=== PATIENT | female | born 1985 | race Caucasian/White ===

== ENCOUNTER 2017-07-01 08:59 | Emergency (ER) | payer SELFPAY ==
[2017-07-01] MEDS ORDERED: ACETAMINOPHEN 325 MG TABLET PO ONE (09:46)
[2017-07-01] MEDS ORDERED: NORMAL SALINE 1000 ML 1,000 ML IV ONE (09:46)
[2017-07-01 10:52] LABS: ABSOLUTE BASOPHILS # (AUTO) 0.1 10^3/uL (0.0-0.2); ABSOLUTE EOSINOPHILS # (AUTO) 0.1 10^3/uL (0.0-0.6); ABSOLUTE LYMPHOCYTES (AUTO) 2.4 10^3/uL (0.5-4.7); ABSOLUTE MONOCYTES (AUTO) 1.2 10^3/uL (0.1-1.4); ABSOLUTE NEUT (AUTO) 8.9 10^3/uL (1.7-8.2); BASOPHILS % (AUTO) 0.5 % (0-2); EOSINOPHILS % (AUTO) 0.5 % (0-6); HEMATOCRIT 44.3 % (36.0-47.0); HGB HCT DIFFERENCE 0.7; LYMPHOCYTES % (AUTO) 18.8 % (13-45); MEAN CORPUSCULAR HEMOGLOBIN 29.1 pg (27.0-33.4); MEAN CORPUSCULAR HGB CONC 33.8 g/dL (32.0-36.0); MEAN CORPUSCULAR VOLUME 86 fl (80-97); MONOCYTES % (AUTO) 9.7 % (3-13); RED BLOOD COUNT 5.15 10^6/uL (3.72-5.28); RED CELL DISTRIBUTION WIDTH 14.7 % (11.5-14.0); SEGMENTED NEUTROPHILS % (AUTO) 70.5 % (42-78); VENOUS BLOOD BASE EXCESS 2.2 mmol/L; VENOUS BLOOD HCO3 27.8 mmol/L (20-32); VENOUS BLOOD PCO2 46.7 mmHg (35-63); VENOUS BLOOD PH 7.39 (7.30-7.42); WHITE BLOOD COUNT 12.7 10^3/uL (4.0-10.5)
[2017-07-01 11:01] LABS: PROTHROMBIN TIME 14.4 SEC (11.4-15.4)
[2017-07-01 11:05] LABS: ALANINE AMINOTRANSFERASE 28 U/L (9-52); ALKALINE PHOSPHATASE 71 U/L (38-126); ANION GAP 12 (5-19); ASPARTATE AMINO TRANSFERASE 25 U/L (14-36); BILIRUBIN,DIRECT 0.6 mg/dL (0.0-0.4); BILIRUBIN,TOTAL 0.8 mg/dL (0.2-1.3); BLOOD UREA NITROGEN 9 mg/dL (7-20); CALCIUM 9.1 mg/dL (8.4-10.2); CARBON DIOXIDE 25 mmol/L (22-30); CHLORIDE 99 mmol/L (98-107); CREATININE RESULT 0.72 mg/dL (0.52-1.25); GLUCOSE 100 mg/dL (75-110); POTASSIUM 4.4 mmol/L (3.6-5.0); SODIUM 136.2 mmol/L (137-145); TOTAL PROTEIN 7.8 g/dL (6.3-8.2)
[2017-07-01 11:08] LABS: APPEARANCE,URINE SLIGHTLY-CLOUDY; BILIRUBIN,URINE NEGATIVE (NEGATIVE); GLUCOSE, URINE NEGATIVE (NEGATIVE); KETONES,URINE NEGATIVE (NEGATIVE); LEUKOCYTE ESTERASE,URINE NEGATIVE (NEGATIVE); NITRITE,URINE NEGATIVE (NEGATIVE); PROTEIN,URINE 30 mg/dL (NEGATIVE); URINE SPECIFIC GRAVITY 1.013
--- NOTE | 2017-07-01 11:32 | XCELERA REPORT ---
[address] [address] Lower Extremity Venous Evaluation Name: DAVID BARRETT Age: 32 yrs Gender: Female : 1985 Patient Status: Emergency Patient Location: ER Study Date: 07/01/2017 10:45 AM Procedure: Color flow and duplex imaging of the veins of the right lower extremity as well as the left Common Femoral vein. Reason For Study: rle redness, tenderness and swelling, h/o PE Ordering Physician: JESSICA GANNON PA-C Performed By: Ingrid Villanueva Right Sided Venous Evaluation Normal vessel filling wall to wall, compression and augmentation as well as Colour flow down to the infrageniculate veins. Left Sided Venous Evaluation The left common femoral vein is fully compressible. Spontaneous and phasic flow is present in the left common femoral vein. Interpretation Summary No duplex evidence of DVT or obstruction in the right lower extremity nor in the left Common Femoral vein. : JESSICA GANNON PA-C > Paul Dean
--- NOTE | 2017-07-01 12:05 | RADIOLOGY REPORT (SQ) ---
EXAM DESCRIPTION: CTA CHEST COMPLETED DATE/TIME: 07/01/2017 11:41 am REASON FOR STUDY: SOB, chest discomfort, h/o PE COMPARISON: 04/22/2016 TECHNIQUE: CT scan of the chest performed using helical scanning technique with dynamic intravenous contrast injection. Images reviewed with lung, soft tissue and bone windows. Reconstructed coronal and sagittal MPR images reviewed. Additional 3 dimensional post-processing performed to develop Maximal Intensity Projection images (VT P). All images stored on PACS. All CT scanners at this facility use dose modulation, iterative reconstruction, and/or weight based d osing when appropriate to reduce radiation dose to as low as reasonably achievable (ALARA). [facility]: Dose Right [facility]: CareDose [facility]: Dose Right [facility]: Teradose 4D [facility]: Canpages CONTRAST TYPE AND DOSE: contrast/concentration: Isovue 370.00 mg/ml; Total Contrast Delivered: 86.0 ml; Total Saline Delivered: 99.8 ml 86 mL Isovue 370 intravenously RENAL FUNCTION: Creatinine 0.72 LMP 06/13/2017. RADIATION DOSE: Up-to-date CT equipment and radiation dose reduction techniques were employed. CTDIv ol: 41.3 - 41.7 mGy. DLP: 1659 mGy-cm. . LIMITATIONS: None. FINDINGS: LUNGS AND PLEURA: Patchy atelectatic markings RLL similar to prior study. AORTA AND GREAT VESSELS: Limited opacification a nondilated aorta. HEART: No pericardial effusion. PULMONARY ARTERIES: No emboli visualized in the main pulmonary arteries or the segmental branches. HILAR AND MEDIASTINAL STRUCTURES: No identified masses or abnormal nodes. HARDWARE: None in the chest. UPPER ABDOMEN: No significant findings. Limited exam. THYROID AND OTHER SOFT TISSUES: No masses. No adenopathy. BONES: No acute or significant finding. 3D MIPS: Confirm above findings. OTHER: No other significant finding. IMPRESSION: No CT evidence for central pulmonary embolus. Patchy linear atelectatic markings again noted right lung base. TECHNICAL DOCUMENTATION: JOB ID: [id number] Quality ID # [id number]: Final reports with documentation of one or more dose reduction techniques (e.g., Au tomated exposure control, adjustment of the mA and/or kV according to patient size, use of iterative reconstruction technique) 2010 [employer]- All Rights Reserved
--- NOTE | 2017-07-01 12:09 | EKG REPORT ---
SEVERITY:- NORMAL ECG - SINUS RHYTHM : Confirmed by: Shanda Guo 01-Jul-2017 12:08:35
[2017-07-01] MEDS ORDERED: CLINDAMYCIN 600 MG/D5W RTU 50 ML IV ONE (12:22)
--- NOTE | 2017-07-01 12:22 | ER Document Report ---
Doctor's Note Notes: 07/01/17 12:22 Evaluated the patient independently patient with right lower extremity cellulitis around the right posterior fossa of the knee. Will start on clindamycin follow-up with primary care.
[2017-07-01] MEDS ORDERED: NYSTATIN OINTMENT 15 GM TUBE TP ONE (12:23)
--- NOTE | 2017-07-01 13:02 | ER Document Report ---
ED General - General Chief Complaint: Flu Symptoms Stated Complaint: FLU LIKE SYMPTOMS/LEG SWELLING Time Seen by Provider: 07/01/17 09:32 Notes: Patient is a 32-year-old female presents emergency department with flulike symptoms. Admits to feeling clammy with right leg pain since Friday with redness on her leg starting on Friday. Patient states that she does not follow with primary care states she has been told she has high blood pressure in the past. Past medical history significant for PE 2 in the past. Patient states that she does not take control no recent travel or surgery but admits to pack-a-day smoker. At this time she admits to pain on the right anterior side of the thigh but otherwise denies any chest pain, shortness of breath. TRAVEL OUTSIDE OF THE [place] IN LAST 30 DAYS: No - Related Data Allergies/Adverse Reactions: No Known Allergies Allergy (Verified 07/01/17 09:03) Past Medical History - Social History Smoking Status: Current Every Day Smoker Chew tobacco use (# tins/day): No Frequency of alcohol use: None Drug Abuse: Marijuana Family History: Reviewed & Not Pertinent Patient has suicidal ideation: No - Past Medical History Cardiac Medical History: Reports: Hx Hypertension, Hx Pulmonary Embolism Pulmonary Medical History: Reports: Hx Asthma, Hx Bronchitis, Hx Pneumonia Renal/ Medical History: Denies: Hx Peritoneal Dialysis Past Surgical History: Reports: Hx Cholecystectomy, Hx Tonsillectomy - Immunizations Hx Diphtheria, Pertussis, Tetanus Vaccination: No Review of Systems - Review of Systems Constitutional: See HPI Cardiovascular: No symptoms reported Respiratory: No symptoms reported Gastrointestinal: No symptoms reported Skin: See HPI -: Yes All other systems reviewed and negative Physical Exam - Vital signs Vitals: Temp Pulse BP Pulse Ox 99.7 F 102 H 156/85 H 93 07/01/17 09:06 07/01/17 09:06 07/01/17 09:06 07/01/17 09:06 - Notes Notes: PHYSICAL EXAM GENERAL: Alert, interacts well. HEAD: Normocephalic, atraumatic. EYES: Pupils equal, round, and reactive to light. Extraocular movements intact. ENT: Oral mucosa moist, tongue midline. NECK: Full range of motion. Supple. Trachea midline. LUNGS: Clear to auscultation bilaterally, no wheezes, rales, or rhonchi. No respiratory distress. HEART: Regular rate and rhythm. No murmurs, gallops, or rubs. ABDOMEN: Soft, nondistended, nontender. No guarding, rebound, or rigidity.. Bowel sounds present in all 4 quadrants. EXTREMITIES: Moves all 4 extremities spontaneously. No edema, radial and dorsalis pedis pulses 2/4 bilaterally. No cyanosis. NEUROLOGICAL: Alert and oriented x4. Normal speech. PSYCH: Normal affect, normal mood. SKIN: Warm, dry, normal turgor. Edematous and indurated area noted on the medial aspect of the right thigh extending behind the right knee. Mild tenderness to palpation without any evidence of fluctuation or concern for abscess. Patient able to ambulate without any difficulty full range of motion. Course - Re-evaluation Re-evalutation: 07/01/17 18:49 Patient is a 32-year-old female hemodynamic stable, no acute distress and afebrile. Workup did not reveal any evidence of an acute PE, leukocytosis, anemia, electrolyte abnormalities.patient has received IV antibiotics for cellulitis of the right thigh borders marked with a skin marker and patient educated on antibiotic use, proper hygiene and Strict return precautions as well as scheduled follow-up. Patient agrees agrees with plan and stable for discharge home - Vital Signs Vital signs: Temp Pulse Resp BP Pulse Ox 98.8 F 81 18 126/72 H 98 07/01/17 14:00 07/01/17 14:00 07/01/17 14:00 07/01/17 14:00 07/01/17 14:00 - Laboratory Result Diagrams: 07/01/17 10:32 07/01/17 10:32 Laboratory results interpreted by me: 07/01/17 07/01/17 07/01/17 10:32 10:32 10:32 WBC 12.7 H RDW 14.7 H Absolute Neutrophils 8.9 H Sodium 136.2 L Direct Bilirubin 0.6 H Urine Protein 30 H Urine Urobilinogen 2.0 H Urine Ascorbic Acid 40 H - Diagnostic Test Radiology reviewed: Image reviewed, Reports reviewed Discharge - Discharge Clinical Impression: Cellulitis Qualifiers: Site of cellulitis: extremity Site of cellulitis of extremity: lower extremity Laterality: right Qualified Code(s): L03.115 - Cellulitis of right lower limb Condition: Good Disposition: HOME, SELF-CARE Instructions: Acetaminophen Additional Instructions: Follow up with medicaid Follow up in 3-5 days or a wound check CELLULITIS: You have an infection of your skin and underlying soft tissues called cellulitis. This is due to bacteria, which can enter through any break in the skin, or even through an irritated hair follicle. Untreated, cellulitis will usually worsen. Antibiotics are required. Usually, warm packs or warm soaks, and elevation of the infected area are recommended. You should start getting better within 24 to 36 hours. Most infections respond quickly to the right medication. Follow-up care is important, however, to check for abscess (boil) formation, unsuspected foreign body, or resistant infection. If you develop fever, chills, or if the area of infection is becoming rapidly more swollen or painful, call the doctor at once. ANTIBIOTIC THERAPY: You have been given an antibiotic prescription. It's important that you take all the medication, unless instructed otherwise by your physician. Failure to complete the entire course can result in relapse of your condition. Common side effects of antibiotics include nausea, intestinal cramping, or diarrhea. Women may develop vaginal yeast infections, and babies can get yeast (thrush) in the mouth following the use of antibiotics. Contact your physician if you develop significant side effects from this medication. Allergy to this antibiotic can result in hives, wheezing, faintness, or itching. If symptoms of allergy occur, stop the medication and call the doctor. CLINDAMYCIN: You have been given a prescription for the antibiotic clindamycin. It is often prescribed for infections in the mouth, such as dental infections or abscesses, and for skin infections due to MRSA. It's important that you take all the medication, unless instructed otherwise by your physician. Failure to complete the entire course can result in relapse of your condition. Common side effects of antibiotics include nausea, intestinal cramping, or diarrhea. Women may develop vaginal yeast infections, and babies can get yeast (thrush) in the mouth following the use of antibiotics. Contact your physician if you develop significant side effects from this medication. Allergy to this antibiotic can result in hives, wheezing, faintness, or itching. If symptoms of allergy occur, stop the medication and call the doctor. FOLLOW-UP CARE: If you have been referred to a physician for follow-up care, call the physician s office for an appointment as you were instructed or within the next two days. If you experience worsening or a significant change in your symptoms, notify the physician immediately or return to the Emergency Department at any time for re-evaluation. Prescriptions: Clindamycin HCl 450 mg PO TID #7 capsule Referrals: [facility] [NO LOCAL MD] - Follow up as needed [facility] [Provider Group] - Follow up in 3-5 days
[2017-07-01 14:04] VITALS: BP 126/72
== END 2017-07-01 14:04 | disposition home or self-care (01) ==
LOC: ER 08:59
DX: L03.115 Cellulitis of right lower limb (principal); M79.89 Other specified soft tissue disorders; F17.210 Nicotine dependence, cigarettes, uncomplicated; I10 Essential (primary) hypertension; Z86.711 Personal history of pulmonary embolism; Z90.49 Acquired absence of other specified parts of digestive tract
CPT/HCPCS: 93005; 99284; 96361; 96365; 36415; 87040; 87086; 82962; 85025; 85610; 81025; 80053; 81001; 82803; 83605; 93971 ×2; 71275; 93010; J3490; J7030

== ENCOUNTER 2017-07-14 13:28 | Inpatient (IN) | payer SELFPAY ==
[~2017-07-14 13:28] MED LIST: ONDANSETRON HCL INJ/PF 4 MG/2 ML SDV ONE
--- NOTE | 2017-07-14 14:18 | ER Document Report ---
ED Medical Screen (RME) - General Chief Complaint: Abscess Recheck Stated Complaint: SKIN PROBLEM Time Seen by Provider: 07/14/17 14:06 Mode of Arrival: Wheelchair Information source: Patient Notes: Patient states that she was treated here on 07/01/2017 for cellulitis. Patient states that she is since developed a blister to the right leg over the past 4-5 days and had increased redness. hx: Hypertension, asthma, PE, cholecystectomy, tonsillectomy TRAVEL OUTSIDE OF THE [place] IN LAST 30 DAYS: No - Related Data Allergies/Adverse Reactions: No Known Allergies Allergy (Verified 07/01/17 09:03) Past Medical History - Past Medical History Cardiac Medical History: Reports: Hx Hypertension, Hx Pulmonary Embolism Pulmonary Medical History: Reports: Hx Asthma, Hx Bronchitis, Hx Pneumonia Renal/ Medical History: Denies: Hx Peritoneal Dialysis Past Surgical History: Reports: Hx Cholecystectomy, Hx Tonsillectomy - Immunizations Hx Diphtheria, Pertussis, Tetanus Vaccination: No Physical Exam - Vital signs Vitals: Temp Pulse Resp BP Pulse Ox 97.9 F 115 H 20 154/93 H 89 L 07/14/17 13:46 07/14/17 13:46 07/14/17 13:46 07/14/17 13:46 07/14/17 13:46 - Skin Skin irregularity: Plaque Irregularity with: Swelling, Tenderness, Inflammation Course - Vital Signs Vital signs: Temp Pulse Resp BP Pulse Ox 97.9 F 115 H 20 154/93 H 89 L 07/14/17 13:46 07/14/17 13:46 07/14/17 13:46 07/14/17 13:46 07/14/17 13:46
--- NOTE | 2017-07-14 14:51 | ER Document Report ---
ED General - General Chief Complaint: Abscess Recheck Stated Complaint: SKIN PROBLEM Time Seen by Provider: 07/14/17 14:06 Mode of Arrival: Wheelchair Information source: Patient Notes: 32-year-old female who was diagnosed with cellulitis started on clindamycin on the eighth presents with complaints of worsening redness of her inner thigh. With blistering. Patient has initially symptoms improved over 4 days of now since worsened. She notes intermittent fever TRAVEL OUTSIDE OF THE [place] IN LAST 30 DAYS: No - HPI Onset: Other Onset/Duration: Persistent Quality of pain: Achy Severity: Mild Pain Level: 1 Associated symptoms: None Exacerbated by: Denies Relieved by: Denies Similar symptoms previously: Yes Recently seen / treated by doctor: Yes - Related Data Allergies/Adverse Reactions: No Known Allergies Allergy (Verified 07/01/17 09:03) Past Medical History - General Information source: Patient - Social History Smoking Status: Current Every Day Smoker Cigarette use (# per day): Yes Chew tobacco use (# tins/day): No Smoking Education Provided: No Family History: Reviewed & Not Pertinent - Past Medical History Cardiac Medical History: Reports: Hx Hypertension, Hx Pulmonary Embolism Pulmonary Medical History: Reports: Hx Asthma, Hx Bronchitis, Hx Pneumonia Renal/ Medical History: Denies: Hx Peritoneal Dialysis Past Surgical History: Reports: Hx Cholecystectomy, Hx Tonsillectomy - Immunizations Hx Diphtheria, Pertussis, Tetanus Vaccination: No Review of Systems - Review of Systems Notes: REVIEW OF SYSTEMS: CONSTITUTIONAL : Denies fever, chills, or sweats. Denies recent illness. EENT: Denies eye, ear, throat, or mouth pain or symptoms. Denies nasal or sinus congestion or discharge. Denies throat, tongue, or mouth swelling or difficulty swallowing. CARDIOVASCULAR: Denies chest pain. Denies palpitations or racing or irregular heart beat. Denies ankle edema. RESPIRATORY: Denies cough, cold, or chest congestion. Denies shortness of breath, difficulty breathing, or wheezing. GASTROINTESTINAL: Denies abdominal pain or distention. Denies nausea, vomiting , or diarrhea. Denies blood in vomitus, stools, or per rectum. Denies black, tarry stools. Denies constipation. GENITOURINARY: Denies difficulty urinating, painful urination, burning, frequency, blood in urine, or discharge. FEMALE GENITOURINARY: Denies vaginal bleeding, heavy or abnormal periods, irregular periods. Denies vaginal discharge or odor. MUSCULOSKELETAL: Denies back or neck pain or stiffness. Denies joint pain or swelling. SKIN: Admits to right skin redness blistering HEMATOLOGIC : Denies easy bruising or bleeding. LYMPHATIC: Denies swollen, enlarged glands. NEUROLOGICAL: Denies confusion or altered mental status. Denies passing out or loss of consciousness. Denies dizziness or lightheadedness. Denies headache. Denies weakness or paralysis or loss of use of either side. Denies problems with gait or speech. Denies sensory loss, numbness, or tingling. Denies seizures. PSYCHIATRIC: Denies anxiety or stress. Denies depression, suicidal ideation, or homicidal ideation. ALL OTHER SYSTEMS REVIEWED AND NEGATIVE. PHYSICAL EXAMINATION: GENERAL: Morbidly obese female HEAD: Atraumatic, normocephalic. EYES: Pupils equal round and reactive to light, extraocular movements intact, conjunctiva are normal. ENT: Nares patent, oropharynx clear without exudates. Moist mucous membranes. NECK: Normal range of motion, supple without lymphadenopathy LUNGS: Breath sounds clear to auscultation bilaterally and equal. No wheezes rales or rhonchi. HEART: Regular rate and rhythm without murmurs ABDOMEN: Soft, nontender, nondistended abdomen. No guarding, no rebound. No masses appreciated. Female : deferred Musculoskeletal: Normal range of motion, no pitting or edema. No cyanosis. NEUROLOGICAL: Cranial nerves grossly intact. Normal speech, normal gait. Normal sensory, motor exams PSYCH: Normal mood, normal affect. SKIN: Right thigh cellulitis with large area of abscess measuring 12 x 12 cm Dictation was performed using [employer] voice recognition software Physical Exam - Vital signs Vitals: Temp Pulse Resp BP Pulse Ox 97.9 F 115 H 20 154/93 H 91 L 07/14/17 13:46 07/14/17 13:46 07/14/17 13:46 07/14/17 13:46 07/14/17 13:46 Course - Re-evaluation Re-evalutation: 07/14/17 15:50 Dr. Zuniga was consulted, evaluated patient agrees that patient needs to go to the operating room to have this abscess drained Antibiotics have been ordered - Vital Signs Vital signs: Temp Pulse Resp BP Pulse Ox 97.9 F 115 H 20 154/93 H 91 L 07/14/17 13:46 07/14/17 13:46 07/14/17 13:46 07/14/17 13:46 07/14/17 13:46 - Laboratory Result Diagrams: 07/14/17 14:55 07/14/17 14:55 Laboratory results interpreted by me: 07/14/17 14:55 RDW 15.1 H Discharge - Discharge Clinical Impression: Abscess of right thigh Condition: Stable Disposition: ADMITTED INPATIENT Admitting Provider: Surgicalist Unit Admitted: Telemetry
[2017-07-14 15:05] LABS: ABSOLUTE BASOPHILS # (AUTO) 0.1 10^3/uL (0.0-0.2); ABSOLUTE EOSINOPHILS # (AUTO) 0.3 10^3/uL (0.0-0.6); ABSOLUTE LYMPHOCYTES (AUTO) 1.8 10^3/uL (0.5-4.7); ABSOLUTE MONOCYTES (AUTO) 0.6 10^3/uL (0.1-1.4); ABSOLUTE NEUT (AUTO) 5.7 10^3/uL (1.7-8.2); BASOPHILS % (AUTO) 0.8 % (0-2); EOSINOPHILS % (AUTO) 3.9 % (0-6); HEMATOCRIT 44.3 % (36.0-47.0); HEMOGLOBIN 15.1 g/dL (12.0-15.5); LYMPHOCYTES % (AUTO) 20.8 % (13-45); MEAN CORPUSCULAR VOLUME 86 fl (80-97); MONOCYTES % (AUTO) 7.3 % (3-13); RED BLOOD COUNT 5.18 10^6/uL (3.72-5.28); RED CELL DISTRIBUTION WIDTH 15.1 % (11.5-14.0); SEGMENTED NEUTROPHILS % (AUTO) 67.2 % (42-78); WHITE BLOOD COUNT 8.6 10^3/uL (4.0-10.5)
[2017-07-14] MEDS ORDERED: VANCOMYCIN HCL INJ 1000 MG VIAL IV ONE (15:33)
[2017-07-14] MEDS ORDERED: PIPERACILLIN/TAZOBACTAM 3.375 GM VIAL IV ONE ×2 (15:33→17:21)
[2017-07-14 16:24] LABS: ALANINE AMINOTRANSFERASE 29 U/L (9-52); ALBUMIN 3.5 g/dL (3.5-5.0); ALKALINE PHOSPHATASE 71 U/L (38-126); ANION GAP 9 (5-19); ASPARTATE AMINO TRANSFERASE 20 U/L (14-36); BILIRUBIN,DIRECT 0.4 mg/dL (0.0-0.4); BILIRUBIN,TOTAL 0.4 mg/dL (0.2-1.3); BLOOD UREA NITROGEN 9 mg/dL (7-20); CALCIUM 9.9 mg/dL (8.4-10.2); CARBON DIOXIDE 25 mmol/L (22-30); CHLORIDE 107 mmol/L (98-107); CREATININE RESULT 0.67 mg/dL (0.52-1.25); GLUCOSE 101 mg/dL (75-110); POTASSIUM 4.6 mmol/L (3.6-5.0); SODIUM 141.4 mmol/L (137-145); TOTAL PROTEIN 7.1 g/dL (6.3-8.2)
[2017-07-14] MEDS ORDERED: MORPHINE SULFATE 10 MG/ML INJ IV ONE (16:51)
--- NOTE | 2017-07-14 17:17 | HISTORY AND PHYSICAL E ---
History and Physical NAME: DAVID BARRETT : 1985 AGE: 32Y ADMITTED: 07/14/2017 ROOM: ED11 REQUESTING PHYSICIAN: Dr. Pearl Zaragoza CHIEF COMPLAINT: Deep soft tissue infection, right thigh. HISTORY OF PRESENT ILLNESS: The patient is a 32-year-old white female, with history of morbid obesity, previous pulmonary embolus, who presents to the emergency department approximately 12 days following previous visit to the emergency department for right leg cellulitis. The patient received intravenous antibiotics, and she was started on oral clindamycin. She re-presents to the emergency department complaining of worsening pain, swelling, and intermittent drainage. She was evaluated in the emergency department where she was found to have significant area of skin to the right inner thigh. Surgery was consulted and she was advised admission. PAST MEDICAL HISTORY: 1. Hypertension. 2. Morbid obesity. 3. Hypercholesterolemia. 4. PE in 2008 and 2012. 5. History of anticoagulation, last stopped 3 years ago. PAST SURGICAL HISTORY: 1. Laparoscopic cholecystectomy. 2. Tonsillectomy. 3. Abscess drainage. SOCIAL HISTORY: Patient smokes a pack of cigarettes per day. Lives in [place]. ALLERGIES: None known. MEDICATIONS: None at this time. REVIEW OF SYSTEMS: CONSTITUTIONAL: Patient denies. CARDIOVASCULAR: Patient denies. MUSCULOSKELETAL: As per HPI. SKIN: As per HPI. PSYCHIATRIC: Patient denies. PHYSICAL EXAMINATION: GENERAL: Patient is examined in the emergency department. She is in no acute distress. VITAL SIGNS: Heart rate is 115. Blood pressure 154/93. Respirations 20. Temperature is 97.9. PSYCHIATRIC: Patient alert and oriented x4. NEUROLOGIC: Grossly intact in upper and lower extremities, however, limited due to morbid obesity. HEAD: Oropharynx examined. Poor dentition. NECK: No bruits. LUNGS: Diminished at the bases bilaterally. HEART: Without murmur or gallop. ABDOMEN: Obese. No rigidity. LOWER EXTREMITIES: Significant adiposity of the upper and lower leg. The right leg has marked cellulitis extending anteriorly, medially, and posteriorly, with a central area of partial, if not full thickness, necrosis over a large geographic area. The remainder of the examination is grossly unremarkable. LABORATORY PROFILE: Shows a white blood cell count of 8600, hemoglobin of 15.1. Other labs pending. IMPRESSION: 1. Soft tissue infection, right leg, with cellulitis, skin necrosis, and possible deep soft tissue abscess refractory to outpatient management. 2. Morbid obesity. 3. Hypertension. 4. Smoker. 5. History of pulmonary emboli x2, currently off anticoagulation. RECOMMENDATIONS: Patient needs admission, IV fluids, intravenous antibiotics, and a visit to the operating room for debridement and packing. DICTATING PHYSICIAN: CHALINO STEPHENSON M.D. [id number] PHY#: [id number] ID: [id number] JOB#: [id number] ACCT: [id number] cc:PEARL ZARAGOZA M.D. > MTDD
[2017-07-14] MEDS ORDERED: LIDOCAINE 1% INJ-PF (10 MG/ML) 30 ML SDV ONE (18:35)
[2017-07-14] MEDS ORDERED: METOCLOPRAMIDE HCL INJ/PF 10 MG/2 ML SDV ONE (19:26)
[2017-07-14] MEDS ORDERED: CITRIC ACID/SODIUM CITRATE ORAL SOLN 15 ML UDCUP ONE (19:27)
[2017-07-14] MEDS ORDERED: FAMOTIDINE INJ/PF 20 MG/2 ML SDV IV ONE (19:27)
[2017-07-14] MEDS ORDERED: KETAMINE HCL INJ 500 MG/10 ML VIAL ONE (19:28)
[2017-07-14] MEDS ORDERED: MIDAZOLAM 2 MG/2 ML INJ ONE (19:28)
[2017-07-14] MEDS ORDERED: PROPOFOL INJ 200 MG/20 ML VIAL IV ONE (19:36)
[2017-07-14] MEDS ORDERED: MORPHINE SULFATE 10 MG/ML INJ IV PRN (20:23)
--- NOTE | 2017-07-14 20:32 | OPERATIVE REPORT E ---
Operative Report NAME: DAVID BARRETT : 1985 AGE: 32Y DATE OF SURGERY: 07/14/2017 ROOM: 425 PREOPERATIVE DIAGNOSIS: Cellulitis with skin necrosis. POSTOPERATIVE DIAGNOSIS: Cellulitis with skin necrosis. OPERATION: Debridement of right lower extremity thigh medial aspect skin and deep dermis with leg washout. SURGEON: CHALINO STEPHENSON M.D. ANESTHESIA: Spinal. COMPLICATIONS: None. ESTIMATED BLOOD LOSS: Minimal. DRAINS: None. TISSUE REMOVED OR ALTERED: Devitalized skin. SUMMARY OF PROCEDURE: The patient was taken from the preop holding area to the main holding area where spinal anesthesia was induced. The patient was placed in the supine position, right leg exposed, prepped and draped in a sterile fashion. Surgical plan and surgical timeout were conducted. The skin overlying the most angry necrotic area of the medial mid thigh was debrided with curette. The final area of debridement was approximately 10 x 7 to 8 cm. This extended down to the deep dermis. There was no evidence of tracking or pockets of pus. The remainder of the leg consisted of heavy cellulitis. The wound was irrigated with 2500 mL of saline, dressed with Xeroform, 4 x 4s, and Kerlix. The patient tolerated the procedure well, taken to the recovery room in stable condition. DICTATING PHYSICIAN: CHALINO STEPHENSON M.D. [id number] Y#: [id number] 2020 ID: [id number] JOB#: [id number] ACCT: [id number] cc:CHALINO STEPHENSON M.D. >
[2017-07-14] MEDS: PIPERACILLIN SODIUM/TAZOBACTAM 3.375 GM in NORMAL SALINE 100 ML IV SCH (21:57)
[2017-07-15] MEDS: RINGERS SOLUTION,LACTATED 1,000 ML IV PRN ×2 (01:25→04:18)
[2017-07-15] MEDS: PIPERACILLIN SODIUM/TAZOBACTAM 3.375 GM in NORMAL SALINE 100 ML IV SCH ×3 (01:25→18:56)
[2017-07-15] MEDS: OXYCODONE-ACETAMINOPHEN 5-325 MG TABLET PO PRN ×4 (04:23→23:04)
--- NOTE | 2017-07-15 09:01 | Physician Advisory Note ---
Physician Advisor ProgressNote .: Pursuant to the plan for [facility], I have reviewed the medical record for this patient. Physician Advisor Statement: Nice documentation of co-morbidities. Status: Appropriate for Inpatient status given cellulitis that has failed outpt tx, requiring operative debridement in OR. Thanks! CK
[2017-07-15] MEDS: DOCUSATE SODIUM 100 MG CAPSULE PO SCH ×2 (10:19→17:22)
[2017-07-15] MEDS ORDERED: GLUCAGON,HUMAN RECOMB 1 MG INJ SUBCUT PRN (10:50)
[2017-07-15] MEDS ORDERED: DEXTROSE 40% GEL 15 GM TUBE PO PRN ×2 (10:50)
[2017-07-15] MEDS ORDERED: DEXTROSE 50%-WATER 25 GM/50 ML DISP.SYRIN IV PRN ×2 (10:50)
[2017-07-15] MEDS ORDERED: NORMAL SALINE 1000 ML 1,000 ML IV PRN (10:52)
--- NOTE | 2017-07-15 11:09 | PDOC PROGRESS REPORT ---
Subjective Progress Note for:: 07/15/17 Subjective:: patient c/o right thigh discomfort Physical Exam Vital Signs: Temp Pulse Resp BP Pulse Ox 98.0 F 65 17 114/48 L 94 07/15/17 07:32 07/15/17 07:32 07/15/17 07:32 07/15/17 07:32 07/15/17 10:17 Intake & Output 07/14/17 07/15/17 07/16/17 06:59 06:59 06:59 Intake Total 3500 Output Total 205 Balance 3295 Weight 199.5 kg General appearance: PRESENT: mild distress, morbidly obese Respiratory exam: PRESENT: clear to auscultation ramiro Cardiovascular exam: PRESENT: RRR GI/Abdominal exam: PRESENT: soft Extremities exam: PRESENT: other - right thigh medial aspect: large area of de- epithelialization with redness and induration and tenderness Assessment & Plan - Plan Summary Plan Summary: A/ POD#1 after superficial debridment of right thigh skin necrosis Super-morbid obesity PE of right thigh shows large area of erythema and induration P/ Stat CT scan right tigh to r/o formation of subcutaneous abscess NPO IVF I will proceed accordingly to the CT scan findings today repeat CBC today and daily
[2017-07-15 11:39] LABS: ABSOLUTE EOSINOPHILS # (AUTO) 0.2 10^3/uL (0.0-0.6); ABSOLUTE LYMPHOCYTES (AUTO) 1.6 10^3/uL (0.5-4.7); ABSOLUTE MONOCYTES (AUTO) 0.4 10^3/uL (0.1-1.4); ABSOLUTE NEUT (AUTO) 2.2 10^3/uL (1.7-8.2); EOSINOPHILS % (AUTO) 5.4 % (0-6); HEMOGLOBIN 13.5 g/dL (12.0-15.5); HGB HCT DIFFERENCE 0.5; LYMPHOCYTES % (AUTO) 35.6 % (13-45); MEAN CORPUSCULAR HEMOGLOBIN 29.1 pg (27.0-33.4); MEAN CORPUSCULAR HGB CONC 33.8 g/dL (32.0-36.0); MEAN CORPUSCULAR VOLUME 86 fl (80-97); RED BLOOD COUNT 4.64 10^6/uL (3.72-5.28); WHITE BLOOD COUNT 4.5 10^3/uL (4.0-10.5)
--- NOTE | 2017-07-15 12:21 | RADIOLOGY REPORT (SQ) ---
EXAM DESCRIPTION: CT RT LOWER EXTREMITY WITH COMPLETED DATE/TIME: 07/15/2017 11:50 am REASON FOR STUDY: right thigh cellulitis, swelling, r/o abscess COMPARISON: Right lower extremity venous Doppler 07/01/2017, 02/03/2013 CT angio chest 07/01/2017, 02/02/2013 TECHNIQUE: CT scan of the right thigh performed without intravenous or oral contrast. Images review ed with soft tissue and bone windows. Reconstructed coronal and sagittal MPR images reviewed. All i mages stored on PACS. All CT scanners at this facility use dose modulation, iterative reconstruction, and/or weight based d osing when appropriate to reduce radiation dose to as low as reasonably achievable (ALARA). [facility]: Dose Right [facility]: CareDose [facility]: Dose Right [facility]: Teradose 4D [facility]: [employer] RADIATION DOSE: Up-to-date CT equipment and radiation dose reduction techniques were employed. CTDIv ol: 30.0 mGy. DLP: 1921 mGy-cm. mGy. LIMITATIONS: Morbidly obese patient. Limited contrast bolus FINDINGS: From the midthigh down to the level of the knee, in the medial soft tissues there is ski n thickening and subcutaneous fat stranding from cellulitis. Is along the vascular distribution of t he greater saphenous vein. Consider venous Doppler to evaluate for superficial thrombophlebitis. Fi ndings discussed with Dr. Cuadra. VISUALIZED RIGHT HEMIPELVIS: No acute fracture. No worrisome bone lesions. RIGHT HIP: No acute fracture or dislocation. No worrisome bone lesions. PELVIC SOFT TISSUES: No significant findings. EXTRAPELVIC SOFT TISSUES: Incidental finding of right inguinal lymph nodes, 3 x 1 cm in size, 1.8 x 1.2 cm in size, 2.4 x 1.2 cm in size, 2 x 1 cm in size, 2.4 x 1.2 cm in size, likely reactive OTHER: No other significant finding. IMPRESSION: Medial right thigh a superficial cellulitis without abscess. Right venous Doppler recom mended to evaluate for saphenous vein or varicose vein thrombophlebitis TECHNICAL DOCUMENTATION: JOB ID: [id number] Quality ID # [id number]: Final reports with documentation of one or more dose reduction techniques (e.g., Au tomated exposure control, adjustment of the mA and/or kV according to patient size, use of iterative reconstruction technique) 2010 [employer]- All Rights Reserved
[2017-07-15] MEDS ORDERED: ENOXAPARIN SODIUM INJ 40 MG/0.4 ML DISP.SYRIN SUBCUT ONE (13:30)
--- NOTE | 2017-07-15 14:19 | RADIOLOGY REPORT (SQ) ---
EXAM DESCRIPTION: VENOUS BILATERAL LOWER COMPLETED DATE/TIME: 07/15/2017 2:04 pm REASON FOR STUDY: hx PE; attention to R saphenous vein COMPARISON: None. TECHNIQUE: Dynamic and static crowe scale and color images acquired of both lower extremity venous sy stems. Selected spectral images acquired with additional compression and augmentation maneuvers. Imag es stored on PACS. LIMITATIONS: Large body habitus FINDINGS: RIGHT LEG COMMON FEMORAL AND FEMORAL: Normal phasicity, compression and augmentation. No visualized echogenic m aterial on crowe scale. No defects on color images. POPLITEAL: Normal compression and augmentation. No visualized echogenic material on crowe scale. No de fects on color images. CALF VESSELS: Normal compression and augmentation. No visualized echogenic material on crowe scale. No defects on color image. GSV AND SSV: Normal compression. No visualized echogenic material on crowe scale. No defects on color images. ANY DEEP VENOUS INSUFFICIENCY: Not evaluated. ANY EVIDENCE OF POPLITEAL CYST: No. OTHER: No other significant finding. LEFT LEG COMMON FEMORAL AND FEMORAL: Normal phasicity, compression and augmentation. No visualized echogenic m aterial on crowe scale. No defects on color images. POPLITEAL: Normal compression and augmentation. No visualized echogenic material on crowe scale. No de fects on color images. CALF VESSELS: Normal compression and augmentation. No visualized echogenic material on crowe scale. No defects on color images. GSV AND SSV: Normal compression. No visualized echogenic material on crowe scale. No defects on color images. ANY DEEP VENOUS INSUFFICIENCY: Not evaluated. ANY EVIDENCE POPLITEAL CYST: No. OTHER: No other significant finding. IMPRESSION: NO EVIDENCE DVT OR SVT IN EITHER LEG. TECHNICAL DOCUMENTATION: JOB ID: [id number] [employer]- All Rights Reserved
[2017-07-15] MEDS ORDERED: VANCOMYCIN HCL 1,500 MG in DEXTROSE 5%-WATER 250 ML IV ONE (16:00)
[2017-07-15] MEDS: ENOXAPARIN SODIUM INJ 40 MG/0.4 ML DISP.SYRIN SUBCUT SCH (21:09)
[2017-07-15] MEDS: VANCOMYCIN HCL 1,500 MG in DEXTROSE 5%-WATER 250 ML IV SCH (21:09)
[2017-07-16] MEDS: PIPERACILLIN SODIUM/TAZOBACTAM 3.375 GM in NORMAL SALINE 100 ML IV SCH ×3 (02:28→21:46)
[2017-07-16] MEDS: VANCOMYCIN HCL 1,500 MG in DEXTROSE 5%-WATER 250 ML IV SCH ×3 (05:03→21:46)
[2017-07-16 05:19] LABS: HEMATOCRIT 39.8 % (36.0-47.0); HEMOGLOBIN 13.4 g/dL (12.0-15.5); HGB HCT DIFFERENCE 0.4; MEAN CORPUSCULAR HEMOGLOBIN 28.9 pg (27.0-33.4); MEAN CORPUSCULAR HGB CONC 33.6 g/dL (32.0-36.0); MEAN CORPUSCULAR VOLUME 86 fl (80-97); RED BLOOD COUNT 4.63 10^6/uL (3.72-5.28); RED CELL DISTRIBUTION WIDTH 15.1 % (11.5-14.0)
[2017-07-16 05:37] LABS: ANION GAP 8 (5-19); BLOOD UREA NITROGEN 8 mg/dL (7-20); CALCIUM 9.1 mg/dL (8.4-10.2); CARBON DIOXIDE 27 mmol/L (22-30); CHLORIDE 102 mmol/L (98-107); CREATININE RESULT 0.75 mg/dL (0.52-1.25); GLUCOSE 98 mg/dL (75-110); POTASSIUM 3.9 mmol/L (3.6-5.0); SODIUM 137.3 mmol/L (137-145)
--- NOTE | 2017-07-16 09:37 | PDOC PROGRESS REPORT ---
Subjective Progress Note for:: 07/16/17 Subjective:: Feels better. Physical Exam Vital Signs: Temp Pulse Resp BP Pulse Ox 98.5 F 53 L 19 138/74 H 98 07/15/17 23:34 07/15/17 23:34 07/15/17 23:34 07/15/17 23:34 07/15/17 23:34 Intake & Output 07/15/17 07/16/17 07/17/17 06:59 06:59 06:59 Intake Total 4470 Output Total 3300 Balance 1170 Weight 199.8 kg General appearance: PRESENT: no acute distress, cooperative Respiratory exam: PRESENT: clear to auscultation ramiro Cardiovascular exam: PRESENT: RRR Extremities exam: PRESENT: other - Right thigh with erythema and induration but no fluctuance. No necrotic tissue. Results Laboratory Results: 07/16/17 05:04 07/16/17 05:04 07/16/17 07/16/17 07/16/17 05:04 05:04 08:41 WBC 5.0 RBC 4.63 Hgb 13.4 Hct 39.8 MCV 86 MCH 28.9 MCHC 33.6 RDW 15.1 H Plt Count 297 Sodium 137.3 Potassium 3.9 Chloride 102 Carbon Dioxide 27 Anion Gap 8 BUN 8 Creatinine 0.75 Est GFR ( Amer) > 60 Est GFR (Non-Af Amer) > 60 Glucose 98 Calcium 9.1 Stool Occult Blood NEGATIVE Impressions: Lower Extremity CT 07/15/17 00:00 IMPRESSION: Medial right thigh a superficial cellulitis without abscess. Right venous Doppler recommended to evaluate for saphenous vein or varicose vein thrombophlebitis Venous Doppler Study 07/15/17 00:00 IMPRESSION: NO EVIDENCE DVT OR SVT IN EITHER LEG. Assessment & Plan - Diagnosis (1) Cellulitis Qualifiers: Site of cellulitis of extremity: lower extremity Laterality: right Is this a current diagnosis for this admission?: Yes Plan: No evidence of abscess on radiologic studies. Still with marked erythema. Continue broad-spectrum antibiotics. We will switch her dressings over to Xeroform dressings. Patient may be placed on anticoagulation since that there is no surgical debridement that is required at this time. Will consult hospitalist.
[2017-07-16] MEDS: ENOXAPARIN SODIUM INJ 40 MG/0.4 ML DISP.SYRIN SUBCUT SCH ×2 (13:38→21:47)
[2017-07-16] MEDS: DOCUSATE SODIUM 100 MG CAPSULE PO SCH ×2 (13:38→19:17)
[2017-07-16] MEDS: OXYCODONE-ACETAMINOPHEN 5-325 MG TABLET PO PRN (13:42)
[2017-07-16 14:26] LABS: CREATININE RESULT 0.72 mg/dL (0.52-1.25)
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
[2017-07-17 00:39] LABS: APPEARANCE,URINE SLIGHTLY-CLOUDY; BILIRUBIN,URINE NEGATIVE (NEGATIVE); GLUCOSE, URINE NEGATIVE (NEGATIVE); KETONES,URINE NEGATIVE (NEGATIVE); LEUKOCYTE ESTERASE,URINE NEGATIVE (NEGATIVE); NITRITE,URINE NEGATIVE (NEGATIVE); PROTEIN,URINE NEGATIVE (NEGATIVE); URINE SPECIFIC GRAVITY 1.008; UROBILINOGEN,URINE NEGATIVE mg/dL (<2.0)
[2017-07-17] MEDS: PIPERACILLIN SODIUM/TAZOBACTAM 3.375 GM in NORMAL SALINE 100 ML IV SCH ×2 (01:23→10:25)
[2017-07-17] MEDS: VANCOMYCIN HCL 1,500 MG in DEXTROSE 5%-WATER 250 ML IV SCH ×2 (05:08→13:19)
[2017-07-17 05:42] LABS: ABSOLUTE EOSINOPHILS # (AUTO) 0.3 10^3/uL (0.0-0.6); ABSOLUTE LYMPHOCYTES (AUTO) 1.4 10^3/uL (0.5-4.7); ABSOLUTE MONOCYTES (AUTO) 0.5 10^3/uL (0.1-1.4); ABSOLUTE NEUT (AUTO) 2.2 10^3/uL (1.7-8.2); EOSINOPHILS % (AUTO) 6.2 % (0-6); HEMATOCRIT 37.1 % (36.0-47.0); HEMOGLOBIN 12.5 g/dL (12.0-15.5); HGB HCT DIFFERENCE 0.4; LYMPHOCYTES % (AUTO) 30.9 % (13-45); MEAN CORPUSCULAR HEMOGLOBIN 29.1 pg (27.0-33.4); MEAN CORPUSCULAR HGB CONC 33.6 g/dL (32.0-36.0); MEAN CORPUSCULAR VOLUME 87 fl (80-97); MONOCYTES % (AUTO) 11.6 % (3-13); RED BLOOD COUNT 4.29 10^6/uL (3.72-5.28); RED CELL DISTRIBUTION WIDTH 15.1 % (11.5-14.0); SEGMENTED NEUTROPHILS % (AUTO) 50.3 % (42-78); WHITE BLOOD COUNT 4.4 10^3/uL (4.0-10.5)
[2017-07-17 05:58] LABS: ANION GAP 7 (5-19); BLOOD UREA NITROGEN 7 mg/dL (7-20); CALCIUM 9.1 mg/dL (8.4-10.2); CARBON DIOXIDE 26 mmol/L (22-30); CHLORIDE 104 mmol/L (98-107); CREATININE RESULT 0.73 mg/dL (0.52-1.25); GLUCOSE 92 mg/dL (75-110); POTASSIUM 4.2 mmol/L (3.6-5.0); SODIUM 136.7 mmol/L (137-145)
[2017-07-17] MEDS: DOCUSATE SODIUM 100 MG CAPSULE PO SCH ×2 (10:30→17:14)
[2017-07-17] MEDS: ENOXAPARIN SODIUM INJ 40 MG/0.4 ML DISP.SYRIN SUBCUT SCH ×2 (10:30→21:49)
--- NOTE | 2017-07-17 13:52 | PDOC PROGRESS REPORT ---
Subjective Progress Note for:: 07/17/17 Subjective:: Patient does not want a PICC line. States that she is aware of complications from the procedure. Physical Exam Vital Signs: Temp Pulse Resp BP Pulse Ox 98.3 F 71 19 129/56 H 98 07/16/17 23:42 07/16/17 23:42 07/16/17 23:42 07/16/17 23:42 07/16/17 23:42 Intake & Output 07/16/17 07/17/17 07/18/17 06:59 06:59 06:59 Intake Total 1880 Output Total 520 Balance 1360 Weight 198.8 kg Extremities exam: PRESENT: other - 5 x 5 cm ulcer noted in medial thigh, with healthy-appearing granulation tissue base. Dressing reapplied. Results Laboratory Results: 07/17/17 05:04 07/17/17 05:04 07/16/17 07/17/17 07/17/17 23:45 05:04 05:04 WBC 4.4 RBC 4.29 Hgb 12.5 Hct 37.1 MCV 87 MCH 29.1 MCHC 33.6 RDW 15.1 H Plt Count 268 Seg Neutrophils % 50.3 Lymphocytes % 30.9 Monocytes % 11.6 Eosinophils % 6.2 H Basophils % 1.0 Absolute Neutrophils 2.2 Absolute Lymphocytes 1.4 Absolute Monocytes 0.5 Absolute Eosinophils 0.3 Absolute Basophils 0.0 Sodium 136.7 L Potassium 4.2 Chloride 104 Carbon Dioxide 26 Anion Gap 7 BUN 7 Creatinine 0.73 Est GFR ( Amer) > 60 Est GFR (Non-Af Amer) > 60 Glucose 92 Calcium 9.1 Urine Color YELLOW Urine Appearance SLIGHTLY-CLOUDY Urine pH 5.0 Ur Specific [place] 1.008 Urine Protein NEGATIVE Urine Glucose (UA) NEGATIVE Urine Ketones NEGATIVE Urine Blood SMALL H Urine Nitrite NEGATIVE Ur Leukocyte Esterase NEGATIVE Urine WBC (Auto) 0 Urine RBC (Auto) 1 Impressions: Lower Extremity CT 07/15/17 00:00 IMPRESSION: Medial right thigh a superficial cellulitis without abscess. Right venous Doppler recommended to evaluate for saphenous vein or varicose vein thrombophlebitis Venous Doppler Study 07/15/17 00:00 IMPRESSION: NO EVIDENCE DVT OR SVT IN EITHER LEG. Assessment & Plan - Diagnosis (1) Cellulitis Qualifiers: Site of cellulitis of extremity: lower extremity Laterality: right Is this a current diagnosis for this admission?: Yes - Plan Summary Plan Summary: Her significant other does not want a PICC line for intravenous antibiotics. He feels that a PICC line is too dangerous. He agrees only to p.o. antibiotics at this time. Will discontinue vancomycin and Zosyn, and start Augmentin as per family request.
[2017-07-17] MEDS: OXYCODONE-ACETAMINOPHEN 5-325 MG TABLET PO PRN (17:14)
[2017-07-17] MEDS: AMOXICILLIN TR/POT CLAVULANATE ES 600-42.9 MG/5 ML 75 ML PO SCH (21:49)
[2017-07-18 06:33] LABS: ANION GAP 6 (5-19); BLOOD UREA NITROGEN 7 mg/dL (7-20); CALCIUM 8.9 mg/dL (8.4-10.2); CARBON DIOXIDE 28 mmol/L (22-30); CHLORIDE 103 mmol/L (98-107); GLUCOSE 85 mg/dL (75-110); POTASSIUM 4.8 mmol/L (3.6-5.0); SODIUM 137.2 mmol/L (137-145)
[2017-07-18 08:22] LABS: ABSOLUTE BASOPHILS # (AUTO) 0.1 10^3/uL (0.0-0.2); ABSOLUTE EOSINOPHILS # (AUTO) 0.3 10^3/uL (0.0-0.6); ABSOLUTE LYMPHOCYTES (AUTO) 1.4 10^3/uL (0.5-4.7); ABSOLUTE MONOCYTES (AUTO) 0.5 10^3/uL (0.1-1.4); BASOPHILS % (AUTO) 1.2 % (0-2); EOSINOPHILS % (AUTO) 6.2 % (0-6); HEMATOCRIT 38.7 % (36.0-47.0); HEMOGLOBIN 13.1 g/dL (12.0-15.5); HGB HCT DIFFERENCE 0.6; LYMPHOCYTES % (AUTO) 32.6 % (13-45); MEAN CORPUSCULAR HGB CONC 33.8 g/dL (32.0-36.0); MEAN CORPUSCULAR VOLUME 86 fl (80-97); MONOCYTES % (AUTO) 12.5 % (3-13); RED BLOOD COUNT 4.51 10^6/uL (3.72-5.28); RED CELL DISTRIBUTION WIDTH 15.1 % (11.5-14.0); SEGMENTED NEUTROPHILS % (AUTO) 47.5 % (42-78); WHITE BLOOD COUNT 4.3 10^3/uL (4.0-10.5)
[2017-07-18] MEDS: DOCUSATE SODIUM 100 MG CAPSULE PO SCH ×2 (09:52→17:33)
[2017-07-18] MEDS: AMOXICILLIN TR/POT CLAVULANATE ES 600-42.9 MG/5 ML 75 ML PO SCH ×2 (09:52→22:10)
[2017-07-18] MEDS: ENOXAPARIN SODIUM INJ 40 MG/0.4 ML DISP.SYRIN SUBCUT SCH ×2 (09:52→22:10)
[2017-07-18] MEDS: OXYCODONE-ACETAMINOPHEN 5-325 MG TABLET PO PRN ×2 (15:09→22:10)
[2017-07-19 05:28] LABS: ABSOLUTE BASOPHILS # (AUTO) 0.1 10^3/uL (0.0-0.2); ABSOLUTE EOSINOPHILS # (AUTO) 0.4 10^3/uL (0.0-0.6); ABSOLUTE LYMPHOCYTES (AUTO) 1.9 10^3/uL (0.5-4.7); ABSOLUTE MONOCYTES (AUTO) 0.8 10^3/uL (0.1-1.4); ABSOLUTE NEUT (AUTO) 2.2 10^3/uL (1.7-8.2); BASOPHILS % (AUTO) 1.2 % (0-2); EOSINOPHILS % (AUTO) 7.5 % (0-6); HEMATOCRIT 38.4 % (36.0-47.0); HEMOGLOBIN 12.9 g/dL (12.0-15.5); HGB HCT DIFFERENCE 0.3; LYMPHOCYTES % (AUTO) 35.3 % (13-45); MEAN CORPUSCULAR HGB CONC 33.6 g/dL (32.0-36.0); MEAN CORPUSCULAR VOLUME 86 fl (80-97); MONOCYTES % (AUTO) 14.8 % (3-13); RED BLOOD COUNT 4.44 10^6/uL (3.72-5.28); RED CELL DISTRIBUTION WIDTH 14.9 % (11.5-14.0); SEGMENTED NEUTROPHILS % (AUTO) 41.2 % (42-78); WHITE BLOOD COUNT 5.3 10^3/uL (4.0-10.5)
[2017-07-19 05:47] LABS: ANION GAP 8 (5-19); BLOOD UREA NITROGEN 9 mg/dL (7-20); CALCIUM 8.9 mg/dL (8.4-10.2); CARBON DIOXIDE 30 mmol/L (22-30); CHLORIDE 101 mmol/L (98-107); CREATININE RESULT 0.74 mg/dL (0.52-1.25); GLUCOSE 93 mg/dL (75-110); POTASSIUM 4.3 mmol/L (3.6-5.0); SODIUM 138.6 mmol/L (137-145)
[2017-07-19] MEDS: ENOXAPARIN SODIUM INJ 40 MG/0.4 ML DISP.SYRIN SUBCUT SCH (11:22)
[2017-07-19] MEDS: AMOXICILLIN TR/POT CLAVULANATE ES 600-42.9 MG/5 ML 75 ML PO SCH (11:23)
[2017-07-19] MEDS: DOCUSATE SODIUM 100 MG CAPSULE PO SCH (11:23)
--- NOTE | 2017-07-19 11:42 | DISCHARGE SUMMARY E ---
Discharge Summary NAME: DAVID BARRETT : 1985 AGE: 32Y ADMITTED: 07/14/2017 DISCHARGED: 07/19/2017 REASON FOR ADMISSION: Cellulitis right leg. SUMMARY OF HOSPITALIZATION: The patient is a 32-year-old white female with a history of suboptimal hygiene, morbid obesity, and pulmonary embolus, is admitted to the surgicalist service for acute cellulitis with skin necrosis right lower extremity. The patient was admitted to the surgicalist service, kept n.p.o., on IV fluid, and intravenous antibiotics. She was taken to the operating room by Dr. Stephenson on 07/14/2017 where she underwent debridement of right lower extremity leg wound. Wound cultures grew no infecting organisms. Over the ensuing 3 days, she was started on dressing changes. Her erythema improved but was not resolved. She was offered PICC line placement with home antibiotics but refused the PICC line. Therefore by hospital day 5, she was felt to have received maximum benefit from hospitalization and discharged home. FINAL DIAGNOSES: 1. Soft tissue infection with cellulitis right thigh, status post operative debridement, improved but not resolved. 2. History of PE. 3. History of morbid obesity. DISPOSITION: Patient will be discharged home in care of her family, shower daily, change dressings as instructed by nursing staff, and take Augmentin 500 mg p.o. t.i.d. She will follow up with [facility] approximately 1 week. If her clinical condition deteriorates, she has been instructed to followup in the emergency department. DICTATING PHYSICIAN: CHALINO STEPHENSON M.D. [id number] PHY#: [id number] ID: [id number] JOB#: [id number] ACCT: [id number] cc:CHALINO STEPHENSON M.D. >
[2017-07-19 14:41] VITALS: BP 142/72
== END 2017-07-19 16:22 | disposition home or self-care (01) | DRG 603 ==
LOC: ER 13:28 → EH 16:24 → UNDOADMIN 16:24 → INTOOBSV 17:18 → 4S 17:18 → UNDOADMOB 17:18 → 4S 17:52 → EH 17:52 → 4S 07-15 14:00 → OBSVTOIN 07-16 14:00
PROVIDERS: ATTEND Surgery
DX: L03.115 Cellulitis of right lower limb (principal); Z68.45 Body mass index [BMI] 70 or greater, adult; E66.01 Morbid (severe) obesity due to excess calories; I10 Essential (primary) hypertension; E78.00 Pure hypercholesterolemia, unspecified; J45.909 Unspecified asthma, uncomplicated; F32.9 Major depressive disorder, single episode, unspecified; Z86.711 Personal history of pulmonary embolism; Z90.49 Acquired absence of other specified parts of digestive tract
CPT/HCPCS: 00400; 36415; 80048; 80053; 80202; 81001; 82272; 82565; 82962; 84703; 85025; 85027; 87040; 93970; 96365; 99284; G0378; J1650; J2250; J2270; J2405; J2543; J2704; J2765; J3370; J3490; J7030; J7060; J7120; S0028

== ENCOUNTER 2020-07-09 22:38 | Inpatient (IN) | payer SELFPAY ==
--- NOTE | 2020-07-09 22:59 | ER Document Report ---
ED Medical Screen (RME) - General Chief Complaint: Shortness Of Breath Stated Complaint: SHORTNESS OF BREATH Time Seen by Provider: 07/09/20 22:55 Mode of Arrival: Medic Information source: Patient Notes: HPI; 35-year-old female past medical history significant for asthma presents to the emergency room complaining of worsening shortness of breath that started yesterday. Via EMS. EMS gave Solu-Medrol and 2 nebulizer treatments without relief. Patient's pulse ox in the 80s. Denies any COPD, CHF, not on home oxygen. Denies any recent travel. No COVID-19 exposure. PE: Alert and oriented x3. Acute respiratory distress noted. Lungs: Rales, rhonchi, no wheezes. Heart: Regular rate rhythm without murmurs, rubs, gallops. Unable to do full assessment in triage. Patient was taken directly back to ED room for further evaluation. I have greeted and performed a rapid initial assessment of this patient. A comprehensive ED assessment and evaluation of the patient, analysis of test results and completion of the medical decision making process will be conducted by additional ED providers. I have specifically instructed the patient or family members with the patient to immediately return to any nursing staff should anything change in the patient's condition or with their chief complaint. TRAVEL OUTSIDE OF THE [place] IN LAST 30 DAYS: No - Related Data Allergies/Adverse Reactions: No Known Allergies Allergy (Verified 07/01/17 09:03) Past Medical History - Past Medical History Cardiac Medical History: Reports: Hx Hypertension, Hx Pulmonary Embolism Denies: Hx Congestive Heart Failure, Hx Heart Attack Pulmonary Medical History: Reports: Hx Asthma, Hx Bronchitis, Hx Pneumonia Denies: Hx COPD, Hx Tuberculosis Neurological Medical History: Denies: Hx Seizures, Hx Parkinson's Disease Renal/ Medical History: Denies: Hx End Stage Renal Disease, Hx Kidney Stones, Hx Peritoneal Dialysis GI Medical History: Denies: Hx Cirrhosis, Hx Gastroesophageal Reflux Disease, Hx Ulcer Musculoskeltal Medical History: Denies Hx Arthritis, Denies Hx Multiple Sclerosis Psychiatric Medical History: Reports: Hx Depression Denies: Hx Bipolar Disorder, Hx Schizophrenia Past Surgical History: Reports: Hx Cholecystectomy, Hx Tonsillectomy - Immunizations Hx Diphtheria, Pertussis, Tetanus Vaccination: No
[2020-07-09] MEDS ORDERED: IPRATROPIUM BROMIDE 0.02% NEB 0.5 MG/2.5 ML AMPUL NEB ONE ×2 (23:10→23:16)
[2020-07-09] MEDS ORDERED: METHYLPREDNISOLONE INJ 125 MG/2 ML SDV IV ONE (23:37)
[2020-07-09] MEDS ORDERED: ALBUTEROL SULFATE 0.083% NEB 2.5 MG/3 ML AMPUL NEB ONE (23:37)
--- NOTE | 2020-07-09 23:37 | RADIOLOGY REPORT (SQ) ---
EXAM DESCRIPTION: X-RAY CHEST- One View CLINICAL HISTORY: Dyspnea COMPARISON: Chest radiograph April 21, 2016 TECHNIQUE: Single view of the chest. FINDINGS: There are overlying EKG leads. There are patchy right greater than left bibasilar opacities. The pulmonary vascularity is similar in appearance to prior study. The cardiomediastinal silhouette is mildly enlarged. Osseous structures are stable. IMPRESSION: Right greater than left patchy bibasilar opacities are nonspecific. Differential diagnosis includes infectious and inflammatory causes.
--- NOTE | 2020-07-09 23:48 | EKG REPORT ---
SEVERITY:- BORDERLINE ECG - SINUS TACHYCARDIA PROBABLE LEFT ATRIAL ABNORMALITY : Confirmed by: Ray Modi MD 09-Jul-2020 23:47:33
--- NOTE | 2020-07-09 23:52 | ER Document Report ---
Entered by GERMAN LOW SCRIBE 07/09/20 4019 Acting as scribe for:THUY CANO IV, MD ED Respiratory Problem - General Chief Complaint: Breathing Difficulty Stated Complaint: SHORTNESS OF BREATH Time Seen by Provider: 07/09/20 22:55 Mode of Arrival: Medic Information source: Patient Notes: This 35 year old female patient with a history of asthma and PE x10 years ago brought in by EMS presents to the ED today with complaints of worsening shortness of breath that started yesterday. Patient states she woke up in the middle of the night with shortness of breath that has gotten progressively worse today. She denies chest pain, but states that when she gets a bad cough, she feels tightness in her chest. Patient received Solumedrol and x2 nebulizer treatments via EMS without relief. Per ED nurse, patient's O2 sats were in the 80s on RA, so she was placed on a NRB with increase of O2 sats to 94%. No blood thinners. Denies recent travel or known COVID exposure. TRAVEL OUTSIDE OF THE [place] IN LAST 30 DAYS: No - Related Data Allergies/Adverse Reactions: No Known Allergies Allergy (Verified 07/01/17 09:03) Past Medical History - General Information source: Patient, H Records - Social History Smoking Status: Current Every Day Smoker Smoking Education Provided: No Frequency of alcohol use: Occasional Drug Abuse: Marijuana Family History: Reviewed & Not Pertinent, DM, Hypertension Patient has suicidal ideation: No Patient has homicidal ideation: No - Past Medical History Cardiac Medical History: Reports: Hx Hypertension, Hx Pulmonary Embolism Pulmonary Medical History: Reports: Hx Asthma, Hx Bronchitis, Hx Pneumonia Psychiatric Medical History: Reports: Hx Depression Past Surgical History: Reports: Hx Cholecystectomy, Hx Tonsillectomy - Immunizations Hx Diphtheria, Pertussis, Tetanus Vaccination: No Review of Systems - Review of Systems Constitutional: No symptoms reported EENT: No symptoms reported Cardiovascular: See HPI. denies: Chest pain Respiratory: See HPI, Cough, Short of breath Gastrointestinal: No symptoms reported Genitourinary: No symptoms reported Female Genitourinary: No symptoms reported Musculoskeletal: No symptoms reported Skin: No symptoms reported Hematologic/Lymphatic: No symptoms reported Neurological/Psychological: No symptoms reported -: Yes All other systems reviewed and negative Physical Exam - Vital signs Vitals: Pulse Ox 86 L 07/09/20 23:02 - General General appearance: Alert - HEENT Head: Normocephalic, Atraumatic Eyes: Normal Pupils: PERRL - Respiratory Respiratory status: Tachypnea Chest status: Accessory muscle use Breath sounds: Wheezing - Expiratory wheezing in all bryan Chest palpation: Normal - Cardiovascular Rhythm: Regular, Tachycardia Heart sounds: Normal auscultation Murmur: No Friction rub: No Gallop: None auscultated - Abdominal Inspection: Morbidly Obese Distension: No distension Bowel sounds: Normal Tenderness: Nontender - Abdomen soft Organomegaly: No organomegaly - Back Back: Normal, Nontender - Extremities General upper extremity: Normal inspection General lower extremity: Normal inspection. No: Edema - Neurological Neuro grossly intact: Yes Orientation: AAOx4 Pierre Coma Scale Eye Opening: Spontaneous Hyndman Coma Scale Verbal: Oriented Hyndman Coma Scale Motor: Obeys Commands Hyndman Coma Scale Total: 15 - Psychological Associated symptoms: Normal affect, Normal mood - Skin Skin Temperature: Warm Skin Moisture: Dry Skin Color: Normal Course - Vital Signs Vital signs: Temp Pulse Resp BP Pulse Ox 99.3 F 114 H 31 H 155/71 H 93 07/09/20 23:20 07/09/20 23:20 07/10/20 01:29 07/10/20 01:29 07/10/20 01:29 - Laboratory Result Diagrams: 07/09/20 23:17 07/09/20 23:17 Laboratory results interpreted by me: 07/09/20 07/09/20 07/09/20 23:17 23:17 23:17 WBC 14.8 H RDW 14.5 H Seg Neuts % (Manual) 85 H Lymphocytes % (Manual) 3 L Abs Neuts (Manual) 13.2 H Abs Lymphs (Manual) 0.4 L BUN 6 L Creatinine 0.51 L Glucose 129 H Creatine Kinase 226 H NT-Pro-B Natriuret Pep 255 H - Consults DR. KISER Time consulted: 03:12 Reason for consultation: 07/10/20 03:12 HYPOXIA, PNEUMONIA Consulted provider: will come to ER Critical Care Note - Critical Care Note Total time excluding time spent on procedures (mins): 120 - HYPOXIA, BILATERAL PNEUMONIA Discharge - Discharge Clinical Impression: Morbid obesity, Hypoxia Pneumonia Qualifiers: Pneumonia type: due to unspecified organism Laterality: unspecified laterality Lung location: unspecified part of lung Qualified Code(s): J18.9 - Pneumonia, unspecified organism Asthma exacerbation Qualifiers: Asthma severity: unspecified severity Asthma persistence: unspecified Qualified Code(s): J45.901 - Unspecified asthma with (acute) exacerbation Condition: Stable Disposition: ADMITTED INPATIENT Admitting Provider: Rickie (Hospitalist) Unit Admitted: IMCU I personally performed the services described in the documentation, reviewed and edited the documentation which was dictated to the scribe in my presence, and it accurately records my words and actions.
[2020-07-09] MEDS: MAGNESIUM SULFATE/D5W 1 GM/100 ML RTUPB IV SCH (23:53)
[2020-07-10 00:05] LABS: HEMATOCRIT 42.4 % (36.0-47.0); HEMOGLOBIN 13.7 g/dL (12.0-15.5); MEAN CORPUSCULAR HEMOGLOBIN 28.1 pg (27.0-33.4); MEAN CORPUSCULAR HGB CONC 32.3 g/dL (32.0-36.0); MEAN CORPUSCULAR VOLUME 87 fl (80-97); PLATELET COUNT 153 10^3/uL (150-450); RED BLOOD COUNT 4.87 10^6/uL (3.72-5.28); RED CELL DISTRIBUTION WIDTH 14.5 % (11.5-14.0); WHITE BLOOD COUNT 14.8 10^3/uL (4.0-10.5)
[2020-07-10] MEDS: MAGNESIUM SULFATE/D5W 1 GM/100 ML RTUPB IV SCH (00:15)
[2020-07-10 00:18] LABS: INTERNATIONAL RATION (INR) 1.06
[2020-07-10 00:19] LABS: PARTIAL THROMBOPLASTIN TIME 26.8 SEC (23.5-35.8)
[2020-07-10 00:23] LABS: ALBUMIN 4.2 g/dL (3.5-5.0); ALKALINE PHOSPHATASE 61 U/L (38-126); ANION GAP 11 (5-19); ASPARTATE AMINO TRANSFERASE 19 U/L (14-36); BILIRUBIN,TOTAL 0.5 mg/dL (0.2-1.3); BLOOD UREA NITROGEN 6 mg/dL (7-20); CALCIUM 8.5 mg/dL (8.4-10.2); CARBON DIOXIDE 28 mmol/L (22-30); CHLORIDE 103 mmol/L (98-107); CREATINE KINASE 226 U/L (30-135); GLUCOSE 129 mg/dL (75-110); TOTAL PROTEIN 7.4 g/dL (6.3-8.2)
[2020-07-10 00:32] LABS: ABSOLUTE LYMPHOCYTES# (MANUAL) 0.4 10^3/uL (0.5-4.7); ABSOLUTE MONOCYTES # (MANUAL) 1.2 10^3/uL (0.1-1.4); BAND NEUTROPHILS % (MANUAL) 4 % (3-5); BASOPHILS % (MANUAL) 0 % (0-2); EOSINOPHILS % (MANUAL) 0 % (0-6); LYMPHOCYTES % (MANUAL) 3 % (13-45); MONOCYTES % (MANUAL) 8 % (3-13); PLATELET COMMENT ADEQUATE; RBC MORPHOLOGY COMMENT NORMO-CYTIC/CHROMIC; SEGMENTED NEUTROPHILS % (MAN) 85 % (42-78); TOTAL CELLS COUNTED 100
[2020-07-10 00:34] LABS: CREATINE KINASE MB 2.97 ng/mL (<4.55); TROPONIN I 0.015 ng/mL
--- NOTE | 2020-07-10 01:46 | RADIOLOGY REPORT (SQ) ---
EXAM DESCRIPTION: CT CHEST WITH INTRAVENOUS CONTRAST CLINICAL HISTORY: Dyspnea COMPARISON: July 01, 2017 TECHNIQUE: CT of the chest was performed with intravenous contrast using pulmonary embolism protocol, followed by CTA of the pulmonary arterial vasculature, with 3D reconstruction of the pulmonary arterial vasculature. The patient was injected with 86 mL Isovue-[address] exam was performed according to our departmental dose-optimization program, which includes one or more of the following dose reduction techniques: automated exposure control, adjustment of the mA and/or kV according to patient size, and/or use of iterative reconstruction technique. FINDINGS: Examination is technically limited by the timing of the contrast bolus. There are no filling defects in the main pulmonary trunk, or first order of the visualized branches of the bilateral pulmonary arteries, to suggest a large central pulmonary embolism. There is no evidence of clinically significant thoracic aortic aneurysm or thoracic aortic dissection. There is no evidence of clinically significant pericardial effusion. There are multifocal consolidative and patchy groundglass opacities bilaterally. Prominent appearing mediastinal lymph nodes are nonspecific and may be reactive in nature. No suspicious lytic or blastic osseous lesions are identified. The visualized upper abdominal structures demonstrate patient to be status post cholecystectomy. IMPRESSION: 1. No CT evidence of large central acute pulmonary or more of them, within the technical limitations of this exam. 2. Imaging features can be seen with viral pneumonia, though are nonspecific and can occur with a variety of infectious and noninfectious processes. Reference: https://pubs.rsna.org/doi/full/10.1148/ryct.9271597508
[2020-07-10] MEDS ORDERED: NORMAL SALINE 1000 ML 1,000 ML IV ONE (03:04)
[2020-07-10] MEDS ORDERED: LEVOFLOXACIN 750 MG/D5W RTU 750 MG/150 ML RTUPB IV ONE (03:05)
[2020-07-10] MEDS ORDERED: ALBUTEROL SULFATE HFA (90 MCG/PUFF) 8 GM MDI IH PRN (03:36)
[2020-07-10] MEDS ORDERED: ONDANSETRON HCL INJ/PF 4 MG/2 ML SDV IV PRN ×2 (03:36→08:30)
--- NOTE | 2020-07-10 03:58 | PDOC H&P ---
History of Present Illness History of Present Illness: DAVID BARRETT is a 35 year old female with a history of asthma and morbid obesity who currently takes no medications at home and has no primary care provider who presents with shortness of breath since yesterday. She is not been running a fever. She states that she has had increased wheezing and then it is been getting more difficult for her to ambulate any kind of distance. She came to the ER and was hypoxic and was quite requiring a nonrebreather and is more comfortable at rest now. She was noted to have wheezing on examination. She was afebrile. She did have a leukocytosis. She had evidence on chest x-ray of bilateral pneumonia. CTA of the chest was negative for PE. She does not have any sick contacts, but she is getting tested for coronavirus. Past Medical History Cardiac Medical History: Reports: Hypertension, Pulmonary Embolism Denies: Congestive Heart Failure, Myocardial Infarction Pulmonary Medical History: Reports: Asthma, Bronchitis, Pneumonia Denies: Chronic Obstructive Pulmonary Disease (COPD), Tuberculosis Neurological Medical History: Denies: Seizures Renal/ Medical History: Denies: End Stage Renal Disease GI Medical History: Denies: Cirrhosis, Gastroesophageal Reflux Disease Musculoskeltal Medical History: Denies: Arthritis Psychiatric Medical History: Reports: Depression Denies: Bipolar Disorder Hematology: Reports: Anemia Denies: Bleeding Tendencies Past Surgical History Past Surgical History: Reports: Cholecystectomy, Tonsillectomy Social History Smoking Status: Current Every Day Smoker Frequency of Alcohol Use: Occasional Hx Recreational Drug Use: Yes Drugs: Marijuana Family History Family History: Reviewed & Not Pertinent, DM, Hypertension Parental Family History Reviewed: Yes Children Family History Reviewed: NA Sibling(s) Family History Reviewed.: Yes Medication/Allergy Home Medications: No Home Medications 07/14/17 Allergies/Adverse Reactions: No Known Allergies Allergy (Verified 07/01/17 09:03) Review of Systems All systems: reviewed and no additional remarkable complaints except as stated - All systems were reviewed and were negative except as noted in the HPI Physical Exam Vital Signs: Temp Pulse Resp BP Pulse Ox 99.3 F 114 H 31 H 155/71 H 93 07/09/20 23:20 07/09/20 23:20 07/10/20 01:29 07/10/20 01:29 07/10/20 01:29 Intake & Output 07/08/20 07/09/20 07/10/20 06:59 06:59 06:59 Intake Total 137 Balance 137 Weight 181.437 kg General appearance: PRESENT: cooperative, disheveled, mild distress, morbidly obese Head exam: PRESENT: atraumatic, normocephalic Eye exam: PRESENT: EOMI, PERRLA. ABSENT: conjunctival injection, nystagmus, scleral icterus Ear exam: PRESENT: normal external ear exam Mouth exam: PRESENT: moist, neck supple Neck exam: PRESENT: full ROM. ABSENT: carotid bruit, JVD, lymphadenopathy, meningismus, tenderness, thyromegaly Respiratory exam: PRESENT: prolonged expiratory phas, symmetrical, unlabored, wheezes. ABSENT: accessory muscle use, chest wall tenderness, crackles, rhonchi, tachypnea Cardiovascular exam: PRESENT: RRR, +S1, +S2 Pulses: PRESENT: normal carotid pulses GI/Abdominal exam: PRESENT: normal bowel sounds, soft. ABSENT: distended, guarding, rebound, tenderness Extremities exam: ABSENT: clubbing, pedal edema Musculoskeletal exam: PRESENT: normal inspection. ABSENT: deformity Neurological exam: PRESENT: alert, awake, oriented to person, oriented to place, oriented to situation, CN II-XII grossly intact. ABSENT: motor sensory deficit Psychiatric exam: PRESENT: appropriate affect, normal mood Skin exam: PRESENT: dry, warm Results Laboratory Results: 07/09/20 23:17 07/09/20 23:17 07/09/20 07/09/20 07/09/20 23:17 23:17 23:17 WBC 14.8 H RBC 4.87 Hgb 13.7 Hct 42.4 MCV 87 MCH 28.1 MCHC 32.3 RDW 14.5 H Plt Count 153 Seg Neutrophils % Not Reportable Sodium 141.8 Potassium 4.0 Chloride 103 Carbon Dioxide 28 Anion Gap 11 BUN 6 L Creatinine 0.51 L Est GFR ( Amer) > 60 Glucose 129 H Calcium 8.5 Total Bilirubin 0.5 AST 19 Alkaline Phosphatase 61 Total Protein 7.4 Albumin 4.2 Serum HCG, Qual NEGATIVE 07/09/20 07/09/20 23:17 23:17 Creatine Kinase 226 H CK-MB (CK-2) 2.97 Troponin I 0.015 NT-Pro-B Natriuret Pep 255 H Impressions: Chest X-Ray 07/09/20 22:55 IMPRESSION: Right greater than left patchy bibasilar opacities are nonspecific. Differential diagnosis includes infectious and inflammatory causes. Chest/Abdomen CTA 07/09/20 23:38 IMPRESSION: 1. No CT evidence of large central acute pulmonary or more of them, within the technical limitations of this exam. 2. Imaging features can be seen with viral pneumonia, though are nonspecific and can occur with a variety of infectious and noninfectious processes. Reference: https://pubs.rsna.org/doi/full/10.1148/ryct.2850744089 Assessment and Plan - Diagnosis (1) Asthma exacerbation Qualifiers: Asthma severity: mild Asthma persistence: intermittent Qualified Code(s): J45.21 - Mild intermittent asthma with (acute) exacerbation Is this a current diagnosis for this admission?: Yes Plan: She responded to bronchodilators in the ER. We will put her on some steroids and albuterol inhaler treatments. We are going to test her for coronavirus. Will empirically cover her with Rocephin, azithromycin, and zinc. (2) Hypoxia Is this a current diagnosis for this admission?: Yes Plan: Continue supplemental O2 to maintain SPO2 greater than 90% (3) Morbid obesity Is this a current diagnosis for this admission?: Yes Plan: Strongly recommended lifestyle modification (4) Pneumonia Qualifiers: Pneumonia type: due to unspecified organism Laterality: bilateral Lung location: lower lobe of lung Qualified Code(s): J18.9 - Pneumonia, unspecified organism Is this a current diagnosis for this admission?: Yes Plan: She is empirically getting treated for community-acquired pneumonia, but she may need coverage expanded and alteration of her steroids depending on results of her coronavirus testing. - Time Time Spent with patient: 35 or more minutes Anticipated Discharge Disposition: Home, Self Care Anticipated Discharge Timeframe: within 72 hours - Inpatient Certification Based on my medical assessment, after consideration of the patient's comorbidities, presenting symptoms, or acuity I expect that the services needed warrant INPATIENT care.: Yes I certify that my determination is in accordance with my understanding of Medicare's requirements for reasonable and necessary INPATIENT services [42 CFR 412.3e].: Yes Medical Necessity: Significant Comorbidiites Make Outpatient Treatment Too Risky, Need Close Monitoring Due to Risk of Patient Decompensation, Need For Continuous Telemetry Monitoring, Need for Nebulizer Therapy and Monitoring of Response, Need for IV Antibiotics, Risk of Complication if Not Cared For in Hospital
[2020-07-10] MEDS: METHYLPREDNISOLONE INJ 40 MG/1 ML SDV IV SCH ×3 (06:27→21:36)
[2020-07-10] MEDS: HEPARIN SOD (PORCINE) 5,000 UNIT/ML 1 ML VIAL SUBCUT SCH ×3 (06:27→21:36)
[2020-07-10] MEDS: CEFTRIAXONE 1 GM/D5W RTU 1 GM/50 ML RTUPB IV SCH (10:15)
[2020-07-10] MEDS: ZINC SULFATE 220 MG CAPSULE PO SCH (10:40)
[2020-07-10] MEDS: AZITHROMYCIN 500 MG in DEXTROSE 5%-WATER 250 ML IV SCH (10:52)
[2020-07-10] MEDS: IPRATROPIUM/ALBUTEROL 0.5-2.5 MG/3 ML AMPUL NEB PRN (10:57)
[2020-07-10] MEDS: IPRATROPIUM/ALBUTEROL 0.5-2.5 MG/3 ML AMPUL NEB SCH ×2 (14:48→19:56)
[2020-07-10 18:25] LABS: APPEARANCE,URINE SLIGHTLY-CLOUDY; BILIRUBIN,URINE NEGATIVE (NEGATIVE); COLOR,URINE YELLOW; GLUCOSE, URINE NEGATIVE (NEGATIVE); KETONES,URINE 20 mg/dL (NEGATIVE); LEUKOCYTE ESTERASE,URINE TRACE (NEGATIVE); NITRITE,URINE NEGATIVE (NEGATIVE); PROTEIN,URINE 30 mg/dL (NEGATIVE); URINE SPECIFIC GRAVITY 1.015; UROBILINOGEN,URINE NEGATIVE mg/dL (<2.0)
[2020-07-10] MEDS: ACETAMINOPHEN 325 MG TABLET PO PRN (21:36)
[2020-07-11] MEDS: IPRATROPIUM/ALBUTEROL 0.5-2.5 MG/3 ML AMPUL NEB SCH ×4 (02:49→20:42)
[2020-07-11] MEDS: METHYLPREDNISOLONE INJ 40 MG/1 ML SDV IV SCH ×3 (05:30→21:11)
[2020-07-11] MEDS: HEPARIN SOD (PORCINE) 5,000 UNIT/ML 1 ML VIAL SUBCUT SCH ×3 (05:30→21:11)
[2020-07-11 06:10] LABS: HEMATOCRIT 43.8 % (36.0-47.0); HEMOGLOBIN 14.2 g/dL (12.0-15.5); MEAN CORPUSCULAR HGB CONC 32.4 g/dL (32.0-36.0); MEAN CORPUSCULAR VOLUME 87 fl (80-97); PLATELET COUNT 195 10^3/uL (150-450); RED BLOOD COUNT 5.07 10^6/uL (3.72-5.28); RED CELL DISTRIBUTION WIDTH 14.4 % (11.5-14.0); WHITE BLOOD COUNT 13.6 10^3/uL (4.0-10.5)
[2020-07-11 06:29] LABS: ANION GAP 7 (5-19); BLOOD UREA NITROGEN 13 mg/dL (7-20); CALCIUM 8.9 mg/dL (8.4-10.2); CARBON DIOXIDE 29 mmol/L (22-30); CHLORIDE 102 mmol/L (98-107); GLUCOSE 149 mg/dL (75-110); POTASSIUM 5.4 mmol/L (3.6-5.0)
[2020-07-11] MEDS: AZITHROMYCIN 500 MG in DEXTROSE 5%-WATER 250 ML IV SCH (09:57)
[2020-07-11] MEDS: CEFTRIAXONE 1 GM/D5W RTU 1 GM/50 ML RTUPB IV SCH (09:58)
[2020-07-11] MEDS: ZINC SULFATE 220 MG CAPSULE PO SCH (09:58)
[2020-07-11] MEDS: IPRATROPIUM/ALBUTEROL 0.5-2.5 MG/3 ML AMPUL NEB PRN (13:56)
--- NOTE | 2020-07-11 14:42 | PDOC PROGRESS REPORT ---
Subjective Progress Note for:: 07/11/20 Reason For Visit: ACUTE HYPOXIC RESPATORY FAILURE,ACUTE ASTMA Physical Exam Vital Signs: Temp Pulse Resp BP Pulse Ox 98.2 F 79 20 145/84 H 97 07/11/20 12:00 07/11/20 14:00 07/11/20 14:00 07/11/20 12:00 07/11/20 14:00 Intake & Output 07/10/20 07/11/20 07/12/20 06:59 06:59 06:59 Intake Total 1287 1253 Output Total 480 Balance 1287 773 Weight 205.9 kg 205.7 kg General appearance: PRESENT: no acute distress, morbidly obese, well-developed, well-nourished Head exam: PRESENT: atraumatic, normocephalic Eye exam: PRESENT: conjunctiva pink, EOMI, PERRLA. ABSENT: scleral icterus Mouth exam: PRESENT: moist, tongue midline Neck exam: ABSENT: carotid bruit, JVD, lymphadenopathy, thyromegaly Respiratory exam: PRESENT: decreased breath sounds, rhonchi, unlabored. ABSENT: rales, wheezes Cardiovascular exam: PRESENT: RRR. ABSENT: diastolic murmur, rubs, systolic murmur Pulses: PRESENT: normal dorsalis pedis pul Vascular exam: PRESENT: normal capillary refill GI/Abdominal exam: PRESENT: normal bowel sounds, soft. ABSENT: distended, guarding, mass, organolmegaly, rebound, tenderness Rectal exam: PRESENT: deferred Extremities exam: PRESENT: full ROM. ABSENT: calf tenderness, clubbing, pedal edema Neurological exam: PRESENT: alert, awake, oriented to person, oriented to place, oriented to time, oriented to situation, CN II-XII grossly intact. ABSENT: motor sensory deficit Psychiatric exam: PRESENT: appropriate affect, normal mood. ABSENT: homicidal ideation, suicidal ideation Skin exam: PRESENT: dry, intact, warm. ABSENT: cyanosis, rash Results Laboratory Results: 07/11/20 05:28 07/11/20 05:28 07/10/20 07/11/20 07/11/20 17:55 05:28 05:28 WBC 13.6 H RBC 5.07 Hgb 14.2 Hct 43.8 MCV 87 MCH 28.0 MCHC 32.4 RDW 14.4 H Plt Count 195 Sodium 137.7 Potassium 5.4 H Chloride 102 Carbon Dioxide 29 Anion Gap 7 BUN 13 Creatinine 0.54 Est GFR ( Amer) > 60 Glucose 149 H Calcium 8.9 Urine Color YELLOW Urine Appearance SLIGHTLY-CLOUDY Urine pH 6.0 Ur Specific Callahan 1.015 Urine Protein 30 H Urine Glucose (UA) NEGATIVE Urine Ketones 20 H Urine Blood NEGATIVE Urine Nitrite NEGATIVE Ur Leukocyte Esterase TRACE H Urine WBC (Auto) 2 Urine RBC (Auto) 11 07/09/20 07/09/20 23:17 23:17 Creatine Kinase 226 H CK-MB (CK-2) 2.97 Troponin I 0.015 NT-Pro-B Natriuret Pep 255 H Impressions: Chest X-Ray 07/09/20 22:55 IMPRESSION: Right greater than left patchy bibasilar opacities are nonspecific. Differential diagnosis includes infectious and inflammatory causes. Chest/Abdomen CTA 07/09/20 23:38 IMPRESSION: 1. No CT evidence of large central acute pulmonary or more of them, within the technical limitations of this exam. 2. Imaging features can be seen with viral pneumonia, though are nonspecific and can occur with a variety of infectious and noninfectious processes. Reference: https://pubs.rsna.org/doi/full/10.1148/ryct.5478990542 Assessment and Plan - Diagnosis (1) Asthma exacerbation Qualifiers: Asthma severity: mild Asthma persistence: intermittent Qualified Code(s): J45.21 - Mild intermittent asthma with (acute) exacerbation Is this a current diagnosis for this admission?: Yes Plan: She is improved but still with diminished breath sounds but less bronchospasm She continues to need IV steroids as well as bronchodilators (2) Morbid obesity Is this a current diagnosis for this admission?: Yes Plan: Strongly recommended lifestyle modification (3) Pneumonia Qualifiers: Pneumonia type: due to unspecified organism Laterality: bilateral Lung location: lower lobe of lung Qualified Code(s): J18.9 - Pneumonia, unspecified organism Is this a current diagnosis for this admission?: Yes Plan: Cont empiric abx COVID test still pending - Time Time Spent with patient: 15-24 minutes Medications reviewed and adjusted accordingly: Yes Anticipated Discharge Disposition: Home, Self Care Anticipated Discharge Timeframe: within 48 hours - Inpatient Certification Based on my medical assessment, after consideration of the patient's comorbidities, presenting symptoms, or acuity I expect that the services needed warrant INPATIENT care.: Yes Medical Necessity: Need for Nebulizer Therapy and Monitoring of Response
[2020-07-11] MEDS: ACETAMINOPHEN 325 MG TABLET PO PRN (21:11)
--- NOTE | 2020-07-11 21:45 | CDI QUERY ---
CDI Query CDI Review: Documentation in the Medical Record indicates this patient has: Height: 5 ft 6 in Weight: 205.7 kg (452.54 lbs) Calculated BMI: 73 The following is also documented in the Medical Record (if pertinent to diagnoses) Morbid Obestiy Based on your medical judgement, can you further clarify in the Progress Notes the diagnosis associated with these findings. Documentation of the BMI supports the diagnosis of Morbid obesity: Morbid Obesity / BMI 73 kg/m2 Severe Morbid Obesity / BMI 73 kg/m2 Other condition (please specify) None of the above / Not applicable Thank you for your consideration. ALBINO Clark RN Clinical Kinesiologist Physician Advisor [email or web address]
[2020-07-12] MEDS: IPRATROPIUM/ALBUTEROL 0.5-2.5 MG/3 ML AMPUL NEB SCH ×4 (01:56→19:49)
[2020-07-12] MEDS: METHYLPREDNISOLONE INJ 40 MG/1 ML SDV IV SCH ×3 (06:38→21:46)
[2020-07-12] MEDS: HEPARIN SOD (PORCINE) 5,000 UNIT/ML 1 ML VIAL SUBCUT SCH ×3 (06:38→21:46)
[2020-07-12 07:27] LABS: HEMATOCRIT 43.8 % (36.0-47.0); HEMOGLOBIN 14.3 g/dL (12.0-15.5); MEAN CORPUSCULAR HEMOGLOBIN 28.1 pg (27.0-33.4); MEAN CORPUSCULAR HGB CONC 32.5 g/dL (32.0-36.0); MEAN CORPUSCULAR VOLUME 87 fl (80-97); PLATELET COUNT 238 10^3/uL (150-450); RED BLOOD COUNT 5.07 10^6/uL (3.72-5.28); RED CELL DISTRIBUTION WIDTH 14.5 % (11.5-14.0); WHITE BLOOD COUNT 12.1 10^3/uL (4.0-10.5)
[2020-07-12 07:47] LABS: ANION GAP 6 (5-19); BLOOD UREA NITROGEN 18 mg/dL (7-20); CALCIUM 9.1 mg/dL (8.4-10.2); CARBON DIOXIDE 33 mmol/L (22-30); CHLORIDE 98 mmol/L (98-107); GLUCOSE 139 mg/dL (75-110); POTASSIUM 5.3 mmol/L (3.6-5.0)
[2020-07-12] MEDS: CEFTRIAXONE 1 GM/D5W RTU 1 GM/50 ML RTUPB IV SCH (10:00)
[2020-07-12] MEDS: ZINC SULFATE 220 MG CAPSULE PO SCH (10:00)
[2020-07-12] MEDS: AZITHROMYCIN 500 MG in DEXTROSE 5%-WATER 250 ML IV SCH (10:02)
[2020-07-12] MEDS: IPRATROPIUM/ALBUTEROL 0.5-2.5 MG/3 ML AMPUL NEB PRN ×2 (10:49→12:49)
--- NOTE | 2020-07-12 17:19 | PDOC PROGRESS REPORT ---
Subjective Progress Note for:: 07/12/20 Subjective:: Patient's breathing is much improved although says she still is wheezing intermittently. Currently at the time of my exam she did have some scattered rhonchi and breath sounds were improved compared with yesterday. Reason For Visit: ACUTE HYPOXIC RESPATORY FAILURE,ACUTE ASTMA Physical Exam Vital Signs: Temp Pulse Resp BP Pulse Ox 98.0 F 91 22 H 155/91 H 97 07/12/20 15:53 07/12/20 15:53 07/12/20 15:53 07/12/20 15:53 07/12/20 15:53 Intake & Output 07/11/20 07/12/20 07/13/20 06:59 06:59 06:59 Intake Total 1253 1047 710 Output Total 480 300 Balance 773 747 710 Weight 205.7 kg 205.7 kg General appearance: PRESENT: no acute distress, morbidly obese, well-nourished Head exam: PRESENT: atraumatic, normocephalic Eye exam: PRESENT: conjunctiva pink, EOMI, PERRLA. ABSENT: scleral icterus Ear exam: PRESENT: normal external ear exam Mouth exam: PRESENT: moist, tongue midline Neck exam: ABSENT: carotid bruit, JVD, lymphadenopathy, thyromegaly Respiratory exam: PRESENT: decreased breath sounds, rhonchi, unlabored. ABSENT: rales, wheezes Cardiovascular exam: PRESENT: RRR, +S1, +S2. ABSENT: diastolic murmur, rubs, systolic murmur Pulses: PRESENT: normal dorsalis pedis pul Vascular exam: PRESENT: normal capillary refill GI/Abdominal exam: PRESENT: normal bowel sounds, soft. ABSENT: distended, guarding, mass, organolmegaly, rebound, tenderness Rectal exam: PRESENT: deferred Extremities exam: PRESENT: full ROM. ABSENT: calf tenderness, clubbing, pedal edema Neurological exam: PRESENT: alert, awake, oriented to person, oriented to place, oriented to time, oriented to situation, CN II-XII grossly intact. ABSENT: motor sensory deficit Psychiatric exam: PRESENT: appropriate affect, normal mood. ABSENT: homicidal ideation, suicidal ideation Skin exam: PRESENT: dry, intact, warm. ABSENT: cyanosis, rash Results Laboratory Results: 07/12/20 07:06 07/12/20 07:06 07/12/20 07/12/20 07:06 07:06 WBC 12.1 H RBC 5.07 Hgb 14.3 Hct 43.8 MCV 87 MCH 28.1 MCHC 32.5 RDW 14.5 H Plt Count 238 Sodium 137.3 Potassium 5.3 H Chloride 98 Carbon Dioxide 33 H Anion Gap 6 BUN 18 Creatinine 0.62 Est GFR ( Amer) > 60 Glucose 139 H Calcium 9.1 07/09/20 07/09/20 23:17 23:17 Creatine Kinase 226 H CK-MB (CK-2) 2.97 Troponin I 0.015 NT-Pro-B Natriuret Pep 255 H Impressions: Chest X-Ray 07/09/20 22:55 IMPRESSION: Right greater than left patchy bibasilar opacities are nonspecific. Differential diagnosis includes infectious and inflammatory causes. Chest/Abdomen CTA 07/09/20 23:38 IMPRESSION: 1. No CT evidence of large central acute pulmonary or more of them, within the technical limitations of this exam. 2. Imaging features can be seen with viral pneumonia, though are nonspecific and can occur with a variety of infectious and noninfectious processes. Reference: https://pubs.rsna.org/doi/full/10.1148/ryct.4280978565 Assessment and Plan - Diagnosis (1) Asthma exacerbation Qualifiers: Asthma severity: mild Asthma persistence: intermittent Qualified Code(s): J45.21 - Mild intermittent asthma with (acute) exacerbation Is this a current diagnosis for this admission?: Yes Plan: She continues to improve but still has some bronchospasm. She continues to need IV steroids as well as bronchodilators however I will decrease her steroid dose and she can be probably change to oral steroids in a. m. if she continues to improve. (2) Pneumonia Qualifiers: Pneumonia type: due to unspecified organism Laterality: bilateral Lung location: lower lobe of lung Qualified Code(s): J18.9 - Pneumonia, unspecified organism Is this a current diagnosis for this admission?: Yes Plan: Cont empiric ceftriaxone and Zithromax COVID test is negative (3) Morbid obesity with BMI of 70 and over, adult Is this a current diagnosis for this admission?: Yes Plan: Super morbid obesity patient needs serious weight loss (4) Hyperkalemia Is this a current diagnosis for this admission?: Yes Plan: May be secondary to steroids. This is mild - Time Time Spent with patient: 15-24 minutes Medications reviewed and adjusted accordingly: Yes Anticipated Discharge Disposition: Home, Self Care Anticipated Discharge Timeframe: within 72 hours - Inpatient Certification Based on my medical assessment, after consideration of the patient's comorbidities, presenting symptoms, or acuity I expect that the services needed warrant INPATIENT care.: Yes
[2020-07-13] MEDS: IPRATROPIUM/ALBUTEROL 0.5-2.5 MG/3 ML AMPUL NEB SCH ×4 (02:04→20:35)
[2020-07-13 06:04] LABS: HEMATOCRIT 47.3 % (36.0-47.0); HEMOGLOBIN 15.3 g/dL (12.0-15.5); MEAN CORPUSCULAR HEMOGLOBIN 27.6 pg (27.0-33.4); MEAN CORPUSCULAR HGB CONC 32.4 g/dL (32.0-36.0); MEAN CORPUSCULAR VOLUME 85 fl (80-97); PLATELET COUNT 193 10^3/uL (150-450); RED BLOOD COUNT 5.55 10^6/uL (3.72-5.28); RED CELL DISTRIBUTION WIDTH 14.3 % (11.5-14.0); WHITE BLOOD COUNT 10.1 10^3/uL (4.0-10.5)
[2020-07-13] MEDS: HEPARIN SOD (PORCINE) 5,000 UNIT/ML 1 ML VIAL SUBCUT SCH ×3 (06:05→21:12)
[2020-07-13 06:24] LABS: ANION GAP 5 (5-19); BLOOD UREA NITROGEN 20 mg/dL (7-20); CALCIUM 9.3 mg/dL (8.4-10.2); CARBON DIOXIDE 34 mmol/L (22-30); CHLORIDE 98 mmol/L (98-107); GLUCOSE 141 mg/dL (75-110); POTASSIUM 5.3 mmol/L (3.6-5.0)
[2020-07-13] MEDS: CEFTRIAXONE 1 GM/D5W RTU 1 GM/50 ML RTUPB IV SCH (10:01)
[2020-07-13] MEDS: METHYLPREDNISOLONE INJ 40 MG/1 ML SDV IV SCH (10:01)
[2020-07-13] MEDS: AZITHROMYCIN 500 MG in DEXTROSE 5%-WATER 250 ML IV SCH (10:01)
[2020-07-13] MEDS: ZINC SULFATE 220 MG CAPSULE PO SCH (10:02)
--- NOTE | 2020-07-13 20:31 | PDOC PROGRESS REPORT ---
Subjective Progress Note for:: 07/13/20 Subjective:: The patient was seen and examined at bedside. She reports significant improvement of her SOB but she is not back to her baseline. Still has cough. She denies any fever. Her appetite is good and she eats well. She reports that prior to admission she uses albuterol PRN which she last used few months ago. She gets about 2x a month of nighttime symptoms. She has never been hospitalized for asthma exacerbation, never been intubated for asthma exacerbation. Never been on steroids for asthma. Reason For Visit: ACUTE HYPOXIC RESPATORY FAILURE,ACUTE ASTMA Physical Exam Vital Signs: Temp Pulse Resp BP Pulse Ox 97.8 F 62 24 H 134/61 H 92 07/13/20 16:18 07/13/20 16:18 07/13/20 16:18 07/13/20 16:18 07/13/20 16:18 Intake & Output 07/12/20 07/13/20 07/14/20 06:59 06:59 06:59 Intake Total 1047 1460 2530 Output Total 300 Balance 747 1460 2530 Weight 205.7 kg 206.1 kg General appearance: PRESENT: mild distress, morbidly obese Head exam: PRESENT: atraumatic, normocephalic Eye exam: PRESENT: EOMI, PERRLA. ABSENT: conjunctival injection Neck exam: PRESENT: full ROM. ABSENT: JVD Respiratory exam: PRESENT: rhonchi, symmetrical, wheezes. ABSENT: rales Cardiovascular exam: PRESENT: RRR, +S1, +S2 - normal Pulses: PRESENT: normal carotid pulses, +2 pedal pulses bilateral GI/Abdominal exam: PRESENT: normal bowel sounds, soft. ABSENT: rebound, tenderness Extremities exam: PRESENT: +1 edema Musculoskeletal exam: PRESENT: ambulatory, full ROM Neurological exam: PRESENT: alert, awake, oriented to person, oriented to place, oriented to time Psychiatric exam: PRESENT: normal mood Results Laboratory Results: 07/13/20 05:19 07/13/20 05:19 07/13/20 07/13/20 05:19 05:19 WBC 10.1 RBC 5.55 H Hgb 15.3 Hct 47.3 H MCV 85 MCH 27.6 MCHC 32.4 RDW 14.3 H Plt Count 193 Sodium 136.8 L Potassium 5.3 H Chloride 98 Carbon Dioxide 34 H Anion Gap 5 BUN 20 Creatinine 0.65 Est GFR ( Amer) > 60 Glucose 141 H Calcium 9.3 07/09/20 07/09/20 23:17 23:17 Creatine Kinase 226 H CK-MB (CK-2) 2.97 Troponin I 0.015 NT-Pro-B Natriuret Pep 255 H Impressions: Chest X-Ray 07/09/20 22:55 IMPRESSION: Right greater than left patchy bibasilar opacities are nonspecific. Differential diagnosis includes infectious and inflammatory causes. Chest/Abdomen CTA 07/09/20 23:38 IMPRESSION: 1. No CT evidence of large central acute pulmonary or more of them, within the technical limitations of this exam. 2. Imaging features can be seen with viral pneumonia, though are nonspecific and can occur with a variety of infectious and noninfectious processes. Reference: https://pubs.[facility]na.org/doi/full/10.1148/ryct.8124238632 Assessment and Plan - Diagnosis (1) Asthma exacerbation Qualifiers: Asthma severity: mild Asthma persistence: intermittent Qualified Code(s): J45.21 - Mild intermittent asthma with (acute) exacerbation Is this a current diagnosis for this admission?: Yes Plan: - improved compared to admission but still mildly SOB with wheezing - no fever, afebrile, WBC count 10.1 likely due to IV steroids - continue neb treatments - switched her to prednisone 40 mg will likely need 1-2 more days - started her on inhaled steroids to continue at home -still on 5L O2 via NC, according to nurse she drops to 80s if lowered. Will keep for now and titrate down (2) Pneumonia Qualifiers: Pneumonia type: due to unspecified organism Laterality: bilateral Lung location: lower lobe of lung Qualified Code(s): J18.9 - Pneumonia, unspecified organism Is this a current diagnosis for this admission?: Yes Plan: - non specific opacities right more than left on CXR - covid negative - received 3 doses of ceftriaxone - Blood culture prelim no growth. WBC nearly normal - switched her to amox 1000 BID to complete 7 day course (3) Morbid obesity with BMI of 70 and over, adult Is this a current diagnosis for this admission?: Yes Plan: Super morbid obesity patient needs serious weight loss (4) Hyperkalemia Is this a current diagnosis for this admission?: Yes Plan: - K 5.3 mild - will continue to monitor - Time Time Spent with patient: 15-24 minutes Smoking Cessation Education: over 10 minutes Medications reviewed and adjusted accordingly: Yes Anticipated Discharge Disposition: Home, Self Care Anticipated Discharge Timeframe: to be determined - Inpatient Certification Medical Necessity: Risk of Complication if Not Cared For in Hospital
[2020-07-13] MEDS: FLUTICASONE PROPIONATE HFA 110 MCG/PUFF 12 GM MDI IH SCH (21:11)
[2020-07-14] MEDS: IPRATROPIUM/ALBUTEROL 0.5-2.5 MG/3 ML AMPUL NEB SCH ×4 (01:47→20:19)
[2020-07-14] MEDS: HEPARIN SOD (PORCINE) 5,000 UNIT/ML 1 ML VIAL SUBCUT SCH ×3 (05:49→22:05)
[2020-07-14] MEDS: AMOXICILLIN TRIHYDRATE 500 MG CAPSULE PO SCH ×2 (09:49→22:04)
[2020-07-14] MEDS: ZINC SULFATE 220 MG CAPSULE PO SCH (09:49)
[2020-07-14] MEDS: FLUTICASONE PROPIONATE HFA 110 MCG/PUFF 12 GM MDI IH SCH ×2 (09:52→22:04)
[2020-07-14] MEDS ORDERED: PREDNISONE 20 MG TABLET PO SCH (10:00)
[2020-07-14 10:33] LABS: ALBUMIN 3.9 g/dL (3.5-5.0); ALKALINE PHOSPHATASE 49 U/L (38-126); ANION GAP 8 (5-19); ASPARTATE AMINO TRANSFERASE 19 U/L (14-36); BILIRUBIN,DIRECT 0.1 mg/dL (0.0-0.4); BILIRUBIN,TOTAL 0.6 mg/dL (0.2-1.3); BLOOD UREA NITROGEN 22 mg/dL (7-20); CALCIUM 9.3 mg/dL (8.4-10.2); CARBON DIOXIDE 31 mmol/L (22-30); CHLORIDE 98 mmol/L (98-107); GLUCOSE 111 mg/dL (75-110); POTASSIUM 4.1 mmol/L (3.6-5.0); TOTAL PROTEIN 7.3 g/dL (6.3-8.2)
--- NOTE | 2020-07-14 20:56 | PDOC PROGRESS REPORT ---
Subjective Progress Note for:: 07/14/20 Subjective:: Patient was seen and examined at bedside. She reports improvement of her shortness of breath, occasional cough, no fever. Good appetite. I tried to wean her off her nasal cannula, She does not complain of shortness of breath without oxygen, however she dropped down to 85% without oxygen support. Reason For Visit: ACUTE HYPOXIC RESPATORY FAILURE,ACUTE ASTMA Physical Exam Vital Signs: Temp Pulse Resp BP Pulse Ox 97.6 F 66 20 145/62 H 94 07/14/20 19:23 07/14/20 20:19 07/14/20 20:19 07/14/20 19:23 07/14/20 20:19 Intake & Output 07/13/20 07/14/20 07/15/20 06:59 06:59 06:59 Intake Total 1460 3730 3120 Balance 1460 3730 3120 Weight 206.1 kg 205.9 kg General appearance: PRESENT: no acute distress, cooperative, morbidly obese Head exam: PRESENT: atraumatic, normocephalic Eye exam: PRESENT: EOMI, PERRLA Mouth exam: PRESENT: moist Neck exam: ABSENT: JVD Respiratory exam: PRESENT: rhonchi, symmetrical, wheezes. ABSENT: accessory muscle use Cardiovascular exam: PRESENT: RRR, +S1, +S2 - normal. ABSENT: gallop, systolic murmur Vascular exam: PRESENT: normal capillary refill GI/Abdominal exam: PRESENT: soft. ABSENT: guarding, rebound, tenderness Rectal exam: PRESENT: deferred Extremities exam: ABSENT: +1 edema Musculoskeletal exam: PRESENT: ambulatory, full ROM Neurological exam: PRESENT: alert, awake, oriented to person, oriented to place, oriented to time Psychiatric exam: PRESENT: normal mood Results Laboratory Results: 07/13/20 05:19 07/14/20 09:42 07/14/20 09:42 Sodium 137.1 Potassium 4.1 Chloride 98 Carbon Dioxide 31 H Anion Gap 8 BUN 22 H Creatinine 0.66 Est GFR ( Amer) > 60 Glucose 111 H Calcium 9.3 Total Bilirubin 0.6 AST 19 Alkaline Phosphatase 49 Total Protein 7.3 Albumin 3.9 07/09/20 07/09/20 23:17 23:17 Creatine Kinase 226 H CK-MB (CK-2) 2.97 Troponin I 0.015 NT-Pro-B Natriuret Pep 255 H Impressions: Chest X-Ray 07/09/20 22:55 IMPRESSION: Right greater than left patchy bibasilar opacities are nonspecific. Differential diagnosis includes infectious and inflammatory causes. Chest/Abdomen CTA 07/09/20 23:38 IMPRESSION: 1. No CT evidence of large central acute pulmonary or more of them, within the technical limitations of this exam. 2. Imaging features can be seen with viral pneumonia, though are nonspecific and can occur with a variety of infectious and noninfectious processes. Reference: https://pubs.rsna.org/doi/full/10.1148/ryct.7985530725 Assessment and Plan - Diagnosis (1) Asthma exacerbation Qualifiers: Asthma severity: mild Asthma persistence: intermittent Qualified Code(s): J45.21 - Mild intermittent asthma with (acute) exacerbation Is this a current diagnosis for this admission?: Yes Plan: - improved compared to admission but still mildly SOB with wheezing - no fever, afebrile, WBC count 10.1 likely due to IV steroids - continue neb treatments - switched her to prednisone 40 mg will likely need 1-2 more days - on inhaled steroids to continue at home for mild persistent asthma -Have tried to wean her off oxygen however she drops down to 85% without (2) Pneumonia Qualifiers: Pneumonia type: due to unspecified organism Laterality: bilateral Lung location: lower lobe of lung Qualified Code(s): J18.9 - Pneumonia, unspecified organism Is this a current diagnosis for this admission?: Yes Plan: - non specific opacities right more than left on CXR - covid negative - received 3 doses of ceftriaxone - Blood culture prelim no growth. WBC nearly normal - on amox 1000 BID to complete 7 day course (3) Morbid obesity with BMI of 70 and over, adult Is this a current diagnosis for this admission?: Yes Plan: Super morbid obesity patient needs serious weight loss -Her BMI puts her at risk for obesity hypoventilation syndrome and sleep apnea if she does not already have it. This might be contributing to her apparent hypoxia and inability to be weaned off oxygen -We will need to follow-up with her primary care physician for referral for polysomnography to diagnose sleep apnea -Will order ABG (4) Hypoxia Is this a current diagnosis for this admission?: Yes Plan: -Patient was still on 5 L of nasal cannula saturating 92%. -Trial to take her off the oxygen resulted in an oxygen drop to 85%. However she is not symptomatic even with an oxygen saturation of 85% -Hypoxia may be chronic secondary to obesity hypoventilation syndrome although she has never been she has never been diagnosed. -She will likely need oxygen at home keep her sats above 92%. -We will order ABG for tomorrow - Continue supplemental O2 to maintain SPO2 greater than 90% - Plan Summary Summary: Patient shortness of breath has improved compared to admission. Her asthma exac erbation has nearly resolved. She continues to be on oxygen support via nasal cannula unable to be weaned off. As previously mentioned this might be chronic from obesity hypoventilation syndrome. She would need oxygen at home to keep her sats above 92%. She currently has no employment therefore no health insurance . will arrange for home oxygen prior to discharge - Time Time Spent with patient: 15-24 minutes Anticipated Discharge Disposition: Home with Home Health Anticipated Discharge Timeframe: within 48 hours - Inpatient Certification Medical Necessity: Need for Nebulizer Therapy and Monitoring of Response
[2020-07-15] MEDS: IPRATROPIUM/ALBUTEROL 0.5-2.5 MG/3 ML AMPUL NEB SCH ×3 (02:02→14:30)
[2020-07-15] MEDS: HEPARIN SOD (PORCINE) 5,000 UNIT/ML 1 ML VIAL SUBCUT SCH ×2 (05:21→14:00)
[2020-07-15 08:35] LABS: ARTERIAL BLOOD BASE EXCESS 6.5 mmol/L; ARTERIAL BLOOD H2CO3 1.57 mmol/L (1.05-1.35); ARTERIAL BLOOD HCO3 32.8 mmol/L (20-24); ARTERIAL BLOOD O2 SATURATION 89.5 % (94-98); ARTERIAL BLOOD PCO2 52.3 mmHg (35-45); ARTERIAL BLOOD PH 7.42 (7.35-7.45); ARTERIAL BLOOD PO2 56.7 mmHg (80-100); ARTERIAL BLOOD TOTAL CO2 34.4 mmol/L (21-25)
[2020-07-15 08:36] LABS: ARTERIAL BLOOD FIO2 3L
[2020-07-15] MEDS: AMOXICILLIN TRIHYDRATE 500 MG CAPSULE PO SCH (09:46)
[2020-07-15] MEDS: ZINC SULFATE 220 MG CAPSULE PO SCH (09:46)
[2020-07-15] MEDS: FLUTICASONE PROPIONATE HFA 110 MCG/PUFF 12 GM MDI IH SCH (09:47)
[2020-07-15 15:37] VITALS: BP 137/72
--- NOTE | 2020-07-15 20:17 | PDOC DISCHARGE SUMMARY ---
Impression - Admit/DC Date/PCP Admission Date/Primary Care Provider: 07/10/20 03:51 Discharge Date: 07/15/20 - Discharge Diagnosis (1) Asthma exacerbation Is this a current diagnosis for this admission?: Yes (2) Pneumonia Is this a current diagnosis for this admission?: Yes (3) Morbid obesity with BMI of 70 and over, adult Is this a current diagnosis for this admission?: Yes (4) Hypoxia Is this a current diagnosis for this admission?: Yes - Assessment Summary: Patient shortness of breath has improved compared to admission. Her asthma exacerbation has nearly resolved. She continues to be on oxygen support via nasal cannula unable to be weaned off. As previously mentioned this might be chronic from obesity hypoventilation syndrome. She would need oxygen at home to keep her sats above 92%. She currently has no employment therefore no health insurance . will arrange for home oxygen prior to discharge - Additional Information Discharge Diet: As Tolerated Discharge Activity: Activity As Tolerated, Slowly Increase Activity Referrals: [facility] [NO LOCAL MD] - (sticker in book) Prescriptions: Amoxicillin Trihydrate [Amoxil 500 mg Capsule] 1,000 mg PO Q12 2 Days #4 capsule Fluticasone Propionate [Flovent Hfa 110 Mcg Inhalation Aerosol 12 gm] 1 puff IH Q12 90 Days #6 inhaler Albuterol Sulfate [Ventolin Hfa 8 gm Mdi] 2 puff IH Q4HP PRN 60 Days #6 inhaler PRN Reason: Home Medications: Albuterol Sulfate [Ventolin Hfa 8 gm Mdi] 2 puff IH Q4HP PRN 60 Days #6 inhaler 07/15/20 Amoxicillin Trihydrate [Amoxil 500 mg Capsule] 1,000 mg PO Q12 2 Days #4 capsule 07/15/20 Fluticasone Propionate [Flovent Hfa 110 Mcg Inhalation Aerosol 12 gm] 1 puff IH Q12 90 Days #6 inhaler 07/15/20 History of Present Illiness History of Present Illness: DAVID BARRETT is a 35 year old female orbitally obese past medical history of asthma admitted due to shortness of breath. Chest XR showed pneumonia COVID negative. She was started on nebulization treatment IV prednisone and antibiotics. She continued to improve throughout her admission and however we have been unable to wean her off the oxygen. He drops down to 85% on room air although she remains asymptomatic. She will be discharged on albuterol inhaler plus low-dose inhaled corticosteroids. She has no means to pay for home oxygen, demand planner consulted. Hospital Course Hospital Course: DAVID BARRETT is a 35 year old female orbitally obese past medical history of asthma admitted due to shortness of breath. Chest XR showed pneumonia COVID negative. She was started on nebulization treatment IV prednisone and antib iotics. She continued to improve throughout her admission and however we have been unable to wean her off the oxygen. He drops down to 85% on room air although she remains asymptomatic. She will be discharged on albuterol inhaler plus low-dose inhaled corticosteroids. She has no means to pay for home oxygen, demand planner consulted. Physical Exam Vital Signs: Temp Pulse Resp BP Pulse Ox 97.9 F 77 20 137/72 H 94 07/15/20 15:34 07/15/20 15:34 07/15/20 15:34 07/15/20 15:34 07/15/20 15:34 Intake & Output 07/14/20 07/15/20 07/16/20 06:59 06:59 06:59 Intake Total 3730 4520 1018 Balance 3730 4520 1018 Weight 205.9 kg 205.9 kg General appearance: PRESENT: no acute distress, morbidly obese Head exam: PRESENT: atraumatic, normocephalic Eye exam: PRESENT: EOMI, PERRLA Mouth exam: PRESENT: moist Neck exam: PRESENT: full ROM Respiratory exam: PRESENT: symmetrical, unlabored, wheezes Cardiovascular exam: PRESENT: RRR, +S1, +S2 GI/Abdominal exam: PRESENT: normal bowel sounds, soft. ABSENT: guarding, tenderness Extremities exam: ABSENT: +1 edema Musculoskeletal exam: PRESENT: full ROM Neurological exam: PRESENT: alert, awake, oriented to person, oriented to place, oriented to time Psychiatric exam: PRESENT: normal mood Results Laboratory Results: WBC 10.1 10^3/uL (4.0-10.5) 07/13/20 05:19 RBC 5.55 10^6/uL (3.72-5.28) H 07/13/20 05:19 Hgb 15.3 g/dL (12.0-15.5) 07/13/20 05:19 Hct 47.3 % (36.0-47.0) H 07/13/20 05:19 MCV 85 fl (80-97) 07/13/20 05:19 MCH 27.6 pg (27.0-33.4) 07/13/20 05:19 MCHC 32.4 g/dL (32.0-36.0) 07/13/20 05:19 RDW 14.3 % (11.5-14.0) H 07/13/20 05:19 Plt Count 193 10^3/uL (150-450) 07/13/20 05:19 Lymph % (Auto) Not Reportable 07/09/20 23:17 [place] % (Auto) Not Reportable 07/09/20 23:17 Eos % (Auto) Not Reportable 07/09/20 23:17 Baso % (Auto) Not Reportable 07/09/20 23:17 Absolute Neuts (auto) Not Reportable 07/09/20 23:17 Absolute Lymphs (auto) Not Reportable 07/09/20 23:17 Absolute Monos (auto) Not Reportable 07/09/20 23:17 Absolute Eos (auto) Not Reportable 07/09/20 23:17 Absolute Basos (auto) Not Reportable 07/09/20 23:17 Total Counted 100 07/09/20 23:17 Seg Neutrophils % Not Reportable 07/09/20 23:17 Seg Neuts % (Manual) 85 % (42-78) H 07/09/20 23:17 Band Neutrophils % 4 % (3-5) 07/09/20 23:17 Lymphocytes % (Manual) 3 % (13-45) L 07/09/20 23:17 Monocytes % (Manual) 8 % (3-13) 07/09/20 23:17 Eosinophils % (Manual) 0 % (0-6) 07/09/20 23:17 Basophils % (Manual) 0 % (0-2) 07/09/20 23:17 Abs Neuts (Manual) 13.2 10^3/uL (1.7-8.2) H 07/09/20 23:17 Abs Lymphs (Manual) 0.4 10^3/uL (0.5-4.7) L 07/09/20 23:17 Abs Monocytes (Manual) 1.2 10^3/uL (0.1-1.4) 07/09/20 23:17 Absolute Eos (Manual) 0.0 10^3/uL (0.0-0.6) 07/09/20 23:17 Abs Basophils (Manual) 0.0 10^3/uL (0.0-0.2) 07/09/20 23:17 Platelet Comment ADEQUATE 07/09/20 23:17 RBC Morph Comment NORMO-CYTIC/CHROMIC 07/09/20 23:17 PT 14.0 SEC (11.4-15.4) 07/09/20 23:17 INR 1.06 07/09/20 23:17 APTT 26.8 SEC (23.5-35.8) 07/09/20 23:17 Carbonic Acid 1.57 mmol/L (1.05-1.35) H 07/15/20 08:05 HCO3/H2CO3 Ratio 20:1 07/15/20 08:05 ABG pH 7.42 (7.35-7.45) 07/15/20 08:05 ABG pCO2 52.3 mmHg (35-45) H 07/15/20 08:05 ABG pO2 56.7 mmHg (80-100) L 07/15/20 08:05 ABG HCO3 32.8 mmol/L (20-24) H 07/15/20 08:05 ABG Total CO2 34.4 mmol/L (21-25) H 07/15/20 08:05 ABG O2 Saturation 89.5 % (94-98) L 07/15/20 08:05 ABG Base Excess 6.5 mmol/L 07/15/20 08:05 FiO2 3L 07/15/20 08:05 Sodium 137.1 mmol/L (137-145) 07/14/20 09:42 Potassium 4.1 mmol/L (3.6-5.0) 07/14/20 09:42 Chloride 98 mmol/L (98-107) 07/14/20 09:42 Carbon Dioxide 31 mmol/L (22-30) H 07/14/20 09:42 Anion Gap 8 (5-19) 07/14/20 09:42 BUN 22 mg/dL (7-20) H 07/14/20 09:42 Creatinine 0.66 mg/dL (0.52-1.25) 07/14/20 09:42 Est GFR ( Amer) > 60 (>60) 07/14/20 09:42 Est GFR (MDRD) Non-Af > 60 (>60) 07/14/20 09:42 Glucose 111 mg/dL (75-110) H 07/14/20 09:42 Lactic Acid 2.3 mmol/L (0.7-2.1) H 07/10/20 03:57 Calcium 9.3 mg/dL (8.4-10.2) 07/14/20 09:42 Total Bilirubin 0.6 mg/dL (0.2-1.3) 07/14/20 09:42 Direct Bilirubin 0.1 mg/dL (0.0-0.4) 07/14/20 09:42 Neonat Total Bilirubin Not Reportable 07/14/20 09:42 Neonat Direct Bilirubin Not Reportable 07/14/20 09:42 Neonat Indirect Bili Not Reportable 07/14/20 09:42 AST 19 U/L (14-36) 07/14/20 09:42 ALT 16 U/L (<35) 07/14/20 09:42 Alkaline Phosphatase 49 U/L (38-126) 07/14/20 09:42 Creatine Kinase 226 U/L (30-135) H 07/09/20 23:17 CK-MB (CK-2) 2.97 ng/mL (<4.55) 07/09/20 23:17 Troponin I 0.015 ng/mL 07/09/20 23:17 NT-Pro-B Natriuret Pep 255 pg/mL (<125) H 07/09/20 23:17 Total Protein 7.3 g/dL (6.3-8.2) 07/14/20 09:42 Albumin 3.9 g/dL (3.5-5.0) 07/14/20 09:42 Serum HCG, Qual NEGATIVE (NEGATIVE) 07/09/20 23:17 Urine Color YELLOW 07/10/20 17:55 Urine Appearance SLIGHTLY-CLOUDY 07/10/20 17:55 Urine pH 6.0 (5.0-9.0) 07/10/20 17:55 Ur Specific [place] 1.015 07/10/20 17:55 Urine Protein 30 mg/dL (NEGATIVE) H 07/10/20 17:55 Urine Glucose (UA) NEGATIVE mg/dL (NEGATIVE) 07/10/20 17:55 Urine Ketones 20 mg/dL (NEGATIVE) H 07/10/20 17:55 Urine Blood NEGATIVE (NEGATIVE) 07/10/20 17:55 Urine Nitrite NEGATIVE (NEGATIVE) 07/10/20 17:55 Urine Bilirubin NEGATIVE (NEGATIVE) 07/10/20 17:55 Urine Urobilinogen NEGATIVE mg/dL (<2.0) 07/10/20 17:55 Ur Leukocyte Esterase TRACE (NEGATIVE) H 07/10/20 17:55 Urine WBC (Auto) 2 /HPF 07/10/20 17:55 Urine RBC (Auto) 11 /HPF 07/10/20 17:55 Urine Bacteria (Auto) TRACE /HPF 07/10/20 17:55 Squamous Epi Cells Auto 2 /HPF 07/10/20 17:55 Urine Mucus (Auto) OCC /LPF 07/10/20 17:55 Urine Ascorbic Acid 40 (NEGATIVE) H 07/10/20 17:55 COVID-19 Source NASOPHARYNGEAL 07/10/20 01:28 COVID-19 (MARIA A) NOT DETECTED 07/10/20 01:28 07/09/20 23:17 CK-MB (CK-2) 2.97 Troponin I 0.015 NT-Pro-B Natriuret Pep 255 H Impressions: Chest X-Ray 07/09/20 22:55 IMPRESSION: Right greater than left patchy bibasilar opacities are nonspecific. Differential diagnosis includes infectious and inflammatory causes. Chest/Abdomen CTA 07/09/20 23:38 IMPRESSION: 1. No CT evidence of large central acute pulmonary or more of them, within the technical limitations of this exam. 2. Imaging features can be seen with viral pneumonia, though are nonspecific and can occur with a variety of infectious and noninfectious processes. Reference: https://pubs.rsna.org/doi/full/10.1148/ryct.0560177841 Plan Plan of Treatment: -Continue albuterol and low-dose inhaled corticosteroids at home. Needs a primary care physician to follow-up with as an outpatient Stroke Is this a Stroke Patient?: No Stroke Pt being discharged on Anti-thrombolytic therapy?: No Reason(s) for not prescribing Anti-thrombolytic therapy:: Not indicated Stroke Pt being discharged on Anti-coagulation therapy?: No Reason(s) for not prescribing Anti-coagulation therapy:: Not indicated Stroke Pt being discharged on Statins?: No Reason(s) for not prescribing Statins therapy:: Not indicated Acute Heart Failure - Is this a Heart Failure Patient?: No Documentation of LVEF assessment?: No, Document reason LVEF - Reason: Not indicated LVEF: LVEF Greater Than 40% Anticoagulant Therapy: No, document contraindications Reason(s) not Discharged on Anticoagulant Therapy: Other Anticoagulant Therapy Reason - Other: not Indicated Discharged on Evidence-Based Beta Blockers: No, document contraindications Reason(s) not discharged on Evidence-Based Beta Blockers: Other Beta Carmela Reason - Other: Not indicated Discharged on ARNI?: No-Document Contraindications Reason(s) not discharged on ARNI: Other ARNI Reason - Other: Not indicated Reason(s) not Discharged on ARB: Other ARB Reason - Other: Not indicated Discharged on ACEI?: No, document contraindications Reason(s) not Discharged on ACEI: other ACEI Reason - Other: Not indicated For LVEF <35%, discharged on Aldosterone Antagonist?: No-document contraincations - Not indicated Reason(s) not discharged on Aldosterone Antagonist: Other - Not indicated Aldosterone Antagonist Reason - Other: Not indicated
== END 2020-07-15 16:23 | disposition home or self-care (01) | DRG 202 ==
LOC: ER 22:38 → EH 07-10 03:51 → 3N 07-10 05:45 → 3S 07-12 09:17
PROVIDERS: ADMIT Family Medicine; ATTEND Internal Medicine
DX: J45.21 Mild intermittent asthma with (acute) exacerbation (principal); J18.9 Pneumonia, unspecified organism; E66.2 Morbid (severe) obesity with alveolar hypoventilation; Z68.45 Body mass index [BMI] 70 or greater, adult; E87.5 Hyperkalemia; I10 Essential (primary) hypertension; R09.02 Hypoxemia; F32.9 Major depressive disorder, single episode, unspecified; F17.210 Nicotine dependence, cigarettes, uncomplicated; Z20.828 Contact with and (suspected) exposure to other viral communicable diseases; Z86.711 Personal history of pulmonary embolism; Z79.51 Long term (current) use of inhaled steroids; Z79.899 Other long term (current) drug therapy
CPT/HCPCS: 36415; 71045; 71275; 80048; 80053; 81001; 82550; 82553; 82803; 83605; 83880; 84484; 84703; 85025; 85027; 85610; 85730; 87040; 87635; 93005; 93010; 94640; 96365; 96367; 96368; 96375; 96376; 99291; 99292; C9803; J0456; J0696; J1644; J1956; J2920; J2930; J3475; J3490; J7030; J7060; J7512